=== PATIENT | female | born 1960 | race Two or more races ===

== ENCOUNTER 2017-06-03 22:02 | Inpatient (IN) | payer MEDICARE, OTHER ==
[~2017-06-03] VITALS: Ht 175.3 cm; Wt 72.6 kg
--- NOTE | 2017-06-03 22:09 | Emergency Room Report ---
History of Present Illness General Chief Complaint: Alcohol Intoxication Source: EMS Present Illness HPI Patient presents by paramedics for reports of alcohol abuse Patient herself is nonverbal this does limit the history of present illness paramedics reported the family states the patient sometimes becomes like this where she essentially refuses to respond to them after drinking Patient does drink on a daily basis No reports of vomiting or diarrhea No reports of any fall or trauma We are pending further discussion with family or other contact for further input Patient has been here several different occasions with some similar complaints Allergies: Coded Allergies: No Known Allergies (Unverified , 11/25/13) Patient History Limited by: medical condition Past Medical History: see triage record Pertinent Family History: unable to obtain Reviewed Nursing Documentation: PMH: Agreed, PSxH: Agreed Nursing Documentation-PMH Past Medical History: No History, Except For History Of Psychiatric Problem: Yes - ALCOHOL ABUSE Review of Systems All Other Systems: limited - Other than the ones mentioned in the history of present illness all others are reviewed however they do stay limited due to the patient's mental status Physical Exam Vital Signs Date Time Temp Pulse Resp B/P (MAP) Pulse Ox O2 Delivery O2 Flow Rate FiO2 06/03/17 21:58 62 20 114/47 100 Room Air Sp02 EP Interpretation: reviewed, normal General Appearance: no apparent distress Head: normocephalic, atraumatic Eyes: bilateral eye PERRL, bilateral eye EOMI ENT: hearing grossly normal, normal pharynx Neck: supple, thyroid normal Respiratory: chest non-tender, lungs clear Cardiovascular #1: normal peripheral pulses Gastrointestinal: non tender, soft Musculoskeletal: normal inspection - Patient does not follow all commands however no obvious focal deficit Neurologic: responsive - To verbal stimuli, however the patient is nonverbal at this time Psychiatric: other - Blunted affect Skin: no rash Medical Decision Making Diagnostic Impression: Primary Impression: Hyponatremia Additional Impressions: Hypokalemia Alcohol abuse ER Course Multiple differentials are considered Patient has broad-spectrum blood work initiated At this time patient shows abnormal findings including low sodium and potassium levels Patient is likely also dehydrated The son presented and was concern about the patient's behavior and alcohol intake Patient was given thiamine here as well with consideration of possible encephalopathy Patient admitted for further inpatient care Labs Test 06/03/17 22:20 White Blood Count 5.7 K/UL (4.8-10.8) Red Blood Count 4.02 M/UL (4.20-5.40) Hemoglobin 14.4 G/DL (12.0-16.0) Hematocrit 42.5 % (37.0-47.0) Mean Corpuscular Volume 106 FL (80-99) Mean Corpuscular Hemoglobin 35.8 PG (27.0-31.0) Mean Corpuscular Hemoglobin Concent 33.8 G/DL (32.0-36.0) Red Cell Distribution Width 12.4 % (11.6-14.8) Platelet Count 145 K/UL (150-450) Mean Platelet Volume 11.4 FL (6.5-10.1) Neutrophils (%) (Auto) 58.6 % (45.0-75.0) Lymphocytes (%) (Auto) 25.8 % (20.0-45.0) Monocytes (%) (Auto) 13.8 % (1.0-10.0) Eosinophils (%) (Auto) 0.4 % (0.0-3.0) Basophils (%) (Auto) 1.3 % (0.0-2.0) Sodium Level 131 mEQ/L (135-145) Potassium Level 2.8 mEQ/L (3.4-4.9) Chloride Level 90 mEQ/L (98-107) Carbon Dioxide Level 22 mEQ/L (20-30) Anion Gap 19 (5-15) Blood Urea Nitrogen 5 mg/dL (7-23) Creatinine 0.5 mg/dL (0.5-0.9) Estimat Glomerular Filtration Rate > 60 mL/min (>60) Glucose Level 103 mg/dL (74-106) Calcium Level 9.0 mg/dL (8.6-10.2) Total Bilirubin 0.7 mg/dL (0.0-1.2) Aspartate Amino Transf (AST/SGOT) 169 U/L (5-40) Alanine Aminotransferase (ALT/SGPT) 88 U/L (3-33) Alkaline Phosphatase 142 U/L (35-104) Total Protein 6.9 g/dL (6.6-8.7) Albumin 3.9 g/dL (3.5-5.2) Globulin 3.0 g/dL Albumin/Globulin Ratio 1.3 (1.0-2.7) Salicylates Level < 1 mg/dL (10-30) Acetaminophen Level < 10 ug/mL (10-30) Serum Alcohol 184 mg/dL Last Vital Signs Date Time Temp Pulse Resp B/P (MAP) Pulse Ox O2 Delivery O2 Flow Rate FiO2 06/03/17 21:58 62 20 114/47 100 Room Air Status: improved Disposition: ADMITTED INPATIENT Condition: Serious YIN PENNY D.O. Jun 03, 2017 22:09
[2017-06-03 22:10] VITALS: BP 110/73
[2017-06-03 22:38] LABS: BASOPHILS % (AUTO) 1.3 % (0.0-2.0); EOSINOPHILS % (AUTO) 0.4 % (0.0-3.0); LYMPHOCYTES % (AUTO) 25.8 % (20.0-45.0); MEAN CORPUSCULAR HEMOGLOBIN 35.8 PG (27.0-31.0); MEAN CORPUSCULAR HGB CONC 33.8 G/DL (32.0-36.0); MEAN CORPUSCULAR VOLUME 106 FL (80-99); MEAN PLATELET VOLUME 11.4 FL (6.5-10.1); MONOCYTES % (AUTO) 13.8 % (1.0-10.0); NEUTROPHILS % (AUTO) 58.6 % (45.0-75.0); PLATELET COUNT 145 K/UL (150-450); RED BLOOD COUNT 4.02 M/UL (4.20-5.40); RED CELL DISTRIBUTION WIDTH 12.4 % (11.6-14.8); WHITE BLOOD COUNT 5.7 K/UL (4.8-10.8)
[2017-06-03 23:04] LABS: ACETAMINOPHEN < 10 ug/mL (10-30); ALANINE AMINOTRANSFERASE 88 U/L (3-33); ALBUMIN/GLOBULIN RATIO 1.3 (1.0-2.7); ALCOHOL 184 mg/dL; ANION GAP 19 (5-15); ASPARTATE AMINO TRANSFERASE 169 U/L (5-40); CARBON DIOXIDE 22 mEQ/L (20-30); CHLORIDE 90 mEQ/L (98-107); CREATININE 0.5 mg/dL (0.5-0.9); GLOMERULAR FILTRATION RATE > 60 mL/min (>60); HEMOLYSIS 7; POTASSIUM 2.8 mEQ/L (3.4-4.9); SODIUM 131 mEQ/L (135-145); TOTAL PROTEIN 6.9 g/dL (6.6-8.7)
[2017-06-04 00:05] VITALS: BP 107/72
[2017-06-04] MEDS ORDERED: Thiamine 100mg tab ORAL ONE (02:00)
[2017-06-04 02:10] VITALS: BP 112/69
[2017-06-04] MEDS ORDERED: NKM (04:05)
[2017-06-04 04:30] VITALS: BP 105/68
[2017-06-04 08:28] VITALS: BP 98/62
[2017-06-04 08:37] LABS: BASOPHILS % (AUTO) 2.1 % (0.0-2.0); EOSINOPHILS % (AUTO) 1.7 % (0.0-3.0); LYMPHOCYTES % (AUTO) 29.6 % (20.0-45.0); MEAN CORPUSCULAR HEMOGLOBIN 34.5 PG (27.0-31.0); MEAN CORPUSCULAR HGB CONC 32.5 G/DL (32.0-36.0); MEAN CORPUSCULAR VOLUME 106 FL (80-99); MONOCYTES % (AUTO) 11.3 % (1.0-10.0); NEUTROPHILS % (AUTO) 55.3 % (45.0-75.0); PLATELET COUNT 161 K/UL (150-450); RED BLOOD COUNT 4.21 M/UL (4.20-5.40); RED CELL DISTRIBUTION WIDTH 12.6 % (11.6-14.8); WHITE BLOOD COUNT 5.8 K/UL (4.8-10.8)
[2017-06-04 08:48] LABS: ALANINE AMINOTRANSFERASE 99 U/L (3-33); ALBUMIN/GLOBULIN RATIO 1.2 (1.0-2.7); ANION GAP 13 (5-15); ASPARTATE AMINO TRANSFERASE 271 U/L (5-40); CARBON DIOXIDE 26 mEQ/L (20-30); CHLORIDE 97 mEQ/L (98-107); CREATININE 0.5 mg/dL (0.5-0.9); GLOMERULAR FILTRATION RATE > 60 mL/min (>60); HEMOLYSIS 4; POTASSIUM 3.5 mEQ/L (3.4-4.9); SODIUM 136 mEQ/L (135-145); TOTAL PROTEIN 6.4 g/dL (6.6-8.7)
[2017-06-04 09:39] LABS: BILIRUBIN,DIRECT 0.5 mg/dL (0.1-0.3)
--- NOTE | 2017-06-04 11:54 | Consultation ---
Consult Note Consult Note Chief Complaint: Alcohol Intoxication Patient presents by paramedics for reports of alcohol abuse Patient herself is nonverbal this does limit the history of present illness paramedics reported the family states the patient sometimes becomes like this where she essentially refuses to respond to them after drinking Patient does drink on a daily basis No reports of vomiting or diarrhea No reports of any fall or trauma We are pending further discussion with family or other contact for further input Patient has been here several different occasions with some similar complaints Past Medical History: No History, Except For History Of Psychiatric Problem: Yes - ALCOHOL ABUSE Assessment/Plan Primary Impression: Hyponatremia resolved- Additional Impressions: Hypokalemia resolved Alcohol abuse Plan: Hydrate- Supplements- Per orders SUSHIL BRAUN Jun 04, 2017 11:54
[2017-06-04] MEDS: Thiamine 100mg tab ORAL SCH (13:17)
[2017-06-04 14:40] LABS: APPEARANCE,URINE CLEAR; KETONES,URINE NEGATIVE (NEGATIVE); LEUKOCYTE ESTERASE ,URINE NEGATIVE (NEGATIVE); NITRITE,URINE NEGATIVE (NEGATIVE); PH,URINE 7 (4.5-8.0); PROTEIN,URINE NEGATIVE (NEGATIVE); UROBILINOGEN,URINE 1 MG/DL (0.0-1.0)
[2017-06-04 15:09] LABS: AMMONIA 43 umol/L (11-51)
[2017-06-04 15:21] LABS: BACTERIA,URINE OCCASIONAL /HPF; RBC,URINE 0-2 /HPF (0 - 2); SQUAMOUS EPITHELIAL CELL,UR OCCASIONAL /LPF (NONE/OCC); WBC,URINE 0-2 /HPF (0 - 2)
--- NOTE | 2017-06-04 15:22 | Diagnostic Imaging Report ---
Indications: Altered mental status Technique: Spiral acquisitions obtained through the brain. Angled axial and coronal 5 x 5 mm slices were reconstructed. Total dose length product 1319 mGycm. CTDI vol(s) 70 mGy. Dose reduction achieved using automated exposure control Comparison: None Findings: No acute hemorrhage or edema. No mass effect or midline shift. Normal uriostegui-white differentiation. Intact calvarium. Visualized orbits and sinuses are unremarkable. Impression: Negative The CT scanner at [facility] is accredited by the [employer] and the scans are performed using protocols designed to limit radiation exposure to as low as reasonably achievable to attain images of sufficient resolution adequate for diagnostic evaluation.
[2017-06-04 16:00] VITALS: BP 118/71
--- NOTE | 2017-06-04 17:16 | Consultation ---
History of Present Illness General Chief Complaint: Alcohol Intoxication Present Illness HPI 57 yo female with hx of anxiety and depression and alcohol dependence who presented with anxiety. the pt was min verbal, she stated that she has had 4-5 shots of vodka for many years. her last drink was the day before admit 6pm. the pt was calm no withdrawal sxs. slept last night. appetite is well. Allergies: Coded Allergies: No Known Allergies (Unverified , 11/25/13) Medication History Scheduled No Known Medications* (NKM - No Known Medications*), 0 ., (Reported) Patient History History Provided By: Patient, Medical Record, PMD Healthcare decision maker Earl Calabrese Resuscitation status Full Code Advanced Directive on File Past Medical/Surgical History Past Medical/Surgical History: (1) Alcohol abuse (2) head injury (3) Injury of head (4) head injury (5) Hypokalemia (6) Alcohol abuse (7) Hyponatremia Review of Systems Psychiatric: Reports: prior hx, anxiety, depressed feelings, emotional problems Physical Exam General Appearance: no apparent distress, alert, thin Neurologic: alert, oriented x 3, responsive, depressed affect Last 24 Hour Vital Signs Date Time Temp Pulse Resp B/P (MAP) Pulse Ox O2 Delivery O2 Flow Rate FiO2 06/04/17 08:28 99.5 78 21 98/62 91 Room Air 06/04/17 05:13 98.2 71 14 105/68 99 Room Air 06/04/17 04:30 98.2 71 14 105/68 99 Room Air 06/04/17 02:10 98.0 68 15 112/69 96 Room Air 06/04/17 00:05 70 16 107/72 98 Room Air 06/03/17 22:10 97.7 67 17 110/73 94 Room Air 06/03/17 21:58 62 20 114/47 100 Room Air Laboratory Tests Test 06/03/17 22:20 06/04/17 06:50 06/04/17 08:15 06/04/17 13:19 White Blood Count 5.7 K/UL (4.8-10.8) 5.8 K/UL (4.8-10.8) Red Blood Count 4.02 M/UL (4.20-5.40) L 4.21 M/UL (4.20-5.40) Hemoglobin 14.4 G/DL (12.0-16.0) 14.5 G/DL (12.0-16.0) Hematocrit 42.5 % (37.0-47.0) 44.7 % (37.0-47.0) Mean Corpuscular Volume 106 FL (80-99) H 106 FL (80-99) H Mean Corpuscular Hemoglobin 35.8 PG (27.0-31.0) H 34.5 PG (27.0-31.0) H Mean Corpuscular Hemoglobin Concent 33.8 G/DL (32.0-36.0) 32.5 G/DL (32.0-36.0) Red Cell Distribution Width 12.4 % (11.6-14.8) 12.6 % (11.6-14.8) Platelet Count 145 K/UL (150-450) L 161 K/UL (150-450) Mean Platelet Volume 11.4 FL (6.5-10.1) H 10.0 FL (6.5-10.1) Neutrophils (%) (Auto) 58.6 % (45.0-75.0) 55.3 % (45.0-75.0) Lymphocytes (%) (Auto) 25.8 % (20.0-45.0) 29.6 % (20.0-45.0) Monocytes (%) (Auto) 13.8 % (1.0-10.0) H 11.3 % (1.0-10.0) H Eosinophils (%) (Auto) 0.4 % (0.0-3.0) 1.7 % (0.0-3.0) Basophils (%) (Auto) 1.3 % (0.0-2.0) 2.1 % (0.0-2.0) H Sodium Level 131 mEQ/L (135-145) L 136 mEQ/L (135-145) Potassium Level 2.8 mEQ/L (3.4-4.9) L 3.5 mEQ/L (3.4-4.9) Chloride Level 90 mEQ/L (98-107) L 97 mEQ/L (98-107) L Carbon Dioxide Level 22 mEQ/L (20-30) 26 mEQ/L (20-30) Anion Gap 19 (5-15) H 13 (5-15) Blood Urea Nitrogen 5 mg/dL (7-23) L 5 mg/dL (7-23) L Creatinine 0.5 mg/dL (0.5-0.9) 0.5 mg/dL (0.5-0.9) Estimat Glomerular Filtration Rate > 60 mL/min (>60) > 60 mL/min (>60) Glucose Level 103 mg/dL (74-106) 119 mg/dL (74-106) H Calcium Level 9.0 mg/dL (8.6-10.2) 9.0 mg/dL (8.6-10.2) Total Bilirubin 0.7 mg/dL (0.0-1.2) 1.2 mg/dL (0.0-1.2) Aspartate Amino Transf (AST/SGOT) 169 U/L (5-40) H 271 U/L (5-40) H Alanine Aminotransferase (ALT/SGPT) 88 U/L (3-33) H 99 U/L (3-33) H Alkaline Phosphatase 142 U/L (35-104) H 143 U/L (35-104) H Total Protein 6.9 g/dL (6.6-8.7) 6.4 g/dL (6.6-8.7) L Albumin 3.9 g/dL (3.5-5.2) 3.6 g/dL (3.5-5.2) Globulin 3.0 g/dL 2.8 g/dL Albumin/Globulin Ratio 1.3 (1.0-2.7) 1.2 (1.0-2.7) Salicylates Level < 1 mg/dL (10-30) L Acetaminophen Level < 10 ug/mL (10-30) L Serum Alcohol 184 mg/dL Urine Opiates Screen Negative (NEGATIVE) Urine Barbiturates Screen Negative (NEGATIVE) Phencyclidine (PCP) Screen Negative (NEGATIVE) Urine Amphetamines Screen Negative (NEGATIVE) Urine Benzodiazepines Screen Negative (NEGATIVE) Urine Cocaine Screen Negative (NEGATIVE) Urine Marijuana (THC) Screen Negative (NEGATIVE) Direct Bilirubin 0.5 mg/dL (0.1-0.3) H Urine Color Yellow Urine Appearance Clear Urine pH 7 (4.5-8.0) Urine Specific [place] 1.015 (1.005-1.035) Urine Protein Negative (NEGATIVE) Urine Glucose (UA) Negative (NEGATIVE) Urine Ketones Negative (NEGATIVE) Urine Occult Blood Negative (NEGATIVE) Urine Nitrite Negative (NEGATIVE) Urine Bilirubin Negative (NEGATIVE) Urine Urobilinogen 1 MG/DL (0.0-1.0) H Urine Leukocyte Esterase Negative (NEGATIVE) Urine RBC 0-2 /HPF (0 - 2) Urine WBC 0-2 /HPF (0 - 2) Urine Squamous Epithelial Cells Occasional /LPF Urine Bacteria Occasional /HPF (NONE) Test 06/04/17 14:45 Ammonia 43 umol/L (11-51) Vitamin B12 Level 1059 pg/mL (211-946) H Height (Feet): 5 Height (Inches): 9.00 Weight (Pounds): 160 Medications Current Medications Medications (Trade) Dose Ordered Sig/Neeraj Route PRN Reason Start Time Stop Time Status Last Admin Dose Admin Diazepam (Valium) 10 mg EVERY 4 HOURS PRN ORAL agitaiton 06/04/17 12:30 06/11/17 12:29 Fluoxetine HCl (PROzac) 20 mg DAILY ORAL 06/05/17 09:00 07/05/17 08:59 Pantoprazole (Protonix) 40 mg EVERY 12 HOURS ORAL 06/04/17 21:00 07/04/17 20:59 Thiamine HCl (Vitamin B1) 100 mg DAILY ORAL 06/04/17 13:00 07/04/17 12:59 06/04/17 13:17 Assessment/Plan Status: stable, progressing Assessment/Plan Alcohol dependence anxiety d/o -Valium 10mg q4hr prn -pozac 20mg Donald Modi M.D. Jun 04, 2017 17:16
[2017-06-04 20:00] VITALS: BP 101/65
--- NOTE | 2017-06-04 23:30 | Consultation ---
DATE OF CONSULTATION: 06/04/2017 NEUROLOGICAL CONSULTATION CONSULTING PHYSICIAN: Markel Stovall M.D. REQUESTING PHYSICIAN: Jules Guardado M.D. HISTORY OF PRESENT ILLNESS: The patient is a 57-year-old female, seen in neurological consultation to evaluate new changes in behavioral abnormalities. Subsequently, the patient was able to provide with information stating that she is suffering from intermittent dizzy spells and severe headaches for at least the last year. This coincides with the severe stress that she developed a year ago after the of her partner, she began to have severe depression. Paramedics were called to the scene to address the issue of her depression, being nonverbal. They described her being unkempt and disheveled. Her vital signs were stable and she was afebrile. She was brought to emergency room, described as being nonverbal. Family contributed stating that the patient has episodes when she would refusing to respond to them. The patient suffers from alcohol abuse for at least 10 years, drinking on a daily basis. She is a smoker. Previous CT of the brain obtained in 2012 described right posterior parietal scalp hematoma, nasal bone fracture, and chronic and paranasal sinusitis. She was seen for falling and head injuries. In the year 1999, the patient presented with the alcohol abuse, head trauma, being treated with Prozac, Protonix, thiamine, as well as given Valium. PAST MEDICAL HISTORY: The patient states that she has episodes of intermittent vertigo, hypertension, unsteady gait, chronic headaches, and severe depression. MEDICATIONS: Her treatment prior to admission, not identifiable. The patient was unable to recall, but presumed she is on Prozac, Protonix, thiamine, and Valium. ALLERGIES: None reported. SOCIAL HISTORY: She lives at home. She admitted to alcohol abuse. No illicit drug abuse. REVIEW OF SYSTEMS: Headache, dizziness, and depression. Denies chest pain or palpitations. Denies respiratory problems. Denies abdominal pain or discomfort. She states that she has somewhat unsteady gait. PHYSICAL EXAMINATION: GENERAL: A well-developed and well-nourished female, sitting in the bed while having her lunch. VITAL SIGNS: Now stable. Temperature 99.5 degrees and blood pressure 98/62. HEENT: Head normocephalic. No evidence of injuries. Eyes, ears, and throat are clear. NECK: Supple. No meningeal signs. MUSCULOSKELETAL EXAMINATION: Unremarkable. There is no deformities. Peripheral pulses 1+ and symmetric. MENTAL STATUS: The patient is alert and oriented x3. No evidence of aphasia or apraxia. Mood depressed. CRANIAL NERVE II: Pupils both responding to light and accommodation. Extraocular movement intact. No nystagmus. CRANIAL NERVE V: Normal corneal responses. CRANIAL NERVE VII: No facial asymmetry. CRANIAL NERVE VIII: Normal hearing. No positional nystagmus. CRANIAL NERVES IX THROUGH XII: Within normal limits. MOTOR EXAMINATION: Normal muscle tone. Strength 5/5 in all extremities. No involuntary movement. Deep tendon reflexes 1+ and symmetric with downgoing toes on both sides. SENSORY EXAM: Normal to pinprick and light touch. GAIT: Slightly wobbly. LABORATORY DATA: On admission, CBC study included elevated MCV and MCH and platelet count 145,000. Toxicology panel, alcohol level 184. Chemistry panel with elevated AST 169 and ALT 88. Sodium 131 and potassium 2.8. Alkaline phosphatase 142. IMPRESSION: 1. A 57-year-old female with alcohol abuse and major depression. 2. History of intermittent benign positional vertigo. 3. Cephalgia, muscle contraction type. 4. Rule out alcohol liver disease. RECOMMENDATIONS: 1. Abdominal ultrasound. 2. CT of the brain. 3. Thiamine 100 mg daily. 4. Ammonia level. 5. Psychiatry assessment to address underlying depression. 6. P.r.n. Valium 5 mg q.i.d. for any signs of delirium. Thank you for allowing me to see this interesting patient in neurological consultation. Markel Stovall M.D. DR: PRAVEEN JOB#: [id number] CC:
[2017-06-05] VITALS (7 sets, daily range): BP systolic 96–123; BP diastolic 50–81
--- NOTE | 2017-06-05 | History and Physical Report ---
DATE OF ADMISSION: 06/04/2017 HISTORY OF PRESENT ILLNESS: The patient comes in. She has alcohol abuse. She is here for severe hypokalemia, elevated LFTs, and some depression. The patient also complains of vomiting and abdominal pain. Denies rectal bleeding. Denies constipation. Denies fever or chills. Denies cough. Denies tremors. Denies hallucinations. PAST MEDICAL HISTORY: Significant for alcohol abuse, history of depression, GERD, and hernia. PAST SURGICAL HISTORY: Hernia repair. MEDICATIONS: Diazepam, Prozac, Protonix, and thiamine. SOCIAL HISTORY: The patient smokes. She has a history of alcohol abuse. Denies history of drug abuse. FAMILY HISTORY: Noncontributory. REVIEW OF SYSTEMS: HEENT: Denies headaches. Respiratory: Denies shortness of breath. Denies cough. Cardiovascular: Denies chest pain. Gastrointestinal: Does have vomiting, nausea, and abdominal pain for couple of days. Denies rectal bleeding. Denies constipation. Extremities: Denies pain in the lower extremities. Central Nervous System: No change in vision or speech pattern. PHYSICAL EXAMINATION: VITAL SIGNS: Temperature is 97.7 degrees, pulse is 67, and blood pressure is 110/73. HEENT: PERRLA. NECK: Supple. No lymphadenopathy. CHEST: Clear to auscultation. GASTROINTESTINAL: Soft, distended. The patient does have hernia. Abdomen is soft. No organomegaly. Positive bowel sounds. EXTREMITIES: No edema. Reflexes are equal on both sides. Able to move all four extremities. NEUROLOGIC: Oriented x2. LABORATORY DATA: WBC of 5.7, hemoglobin 14.4, and platelets 145,000. Sodium 131, potassium 2.8, BUN of 5, and creatinine of 0.5. AST of 169 and ALT of 88. ASSESSMENT AND PLAN: 1. Severe hypokalemia. 2. Elevated liver function tests. 3. Alcohol abuse. 4. Abdominal pain and vomiting. 5. Electrolyte imbalance. 6. I have asked Dr. Stovall, Dr. Gil, Dr. Davila, and Dr. Ren to see the patient for the depression and the above-mentioned diagnoses and treatment. Jules Guardado M.D. DR: Shawn JOB#: [id number] CC:
[2017-06-05 07:35] LABS: MEAN CORPUSCULAR HEMOGLOBIN 37.4 PG (27.0-31.0); MEAN CORPUSCULAR HGB CONC 33.6 G/DL (32.0-36.0); MEAN CORPUSCULAR VOLUME 111 FL (80-99); MEAN PLATELET VOLUME 10.9 FL (6.5-10.1); PLATELET COUNT 135 K/UL (150-450); RED BLOOD COUNT 3.62 M/UL (4.20-5.40); RED CELL DISTRIBUTION WIDTH 12.6 % (11.6-14.8); WHITE BLOOD COUNT 5.5 K/UL (4.8-10.8)
[2017-06-05 07:53] LABS: ALANINE AMINOTRANSFERASE 76 U/L (3-33); ALBUMIN/GLOBULIN RATIO 1.3 (1.0-2.7); ANION GAP 8 (5-15); ASPARTATE AMINO TRANSFERASE 121 U/L (5-40); CALCIUM 8.9 mg/dL (8.6-10.2); CARBON DIOXIDE 31 mEQ/L (20-30); CHLORIDE 100 mEQ/L (98-107); CHOLESTEROL 160 mg/dL (< 200); CHOLESTEROL/HDL RATIO 2.9 (3.3-4.4); CREATININE 0.5 mg/dL (0.5-0.9); CRP QUANT < 0.3 mg/dL (< 0.5); GLOMERULAR FILTRATION RATE > 60 mL/min (>60); HEMOLYSIS 8; LDL CHOLESTEROL (CALC.) 88 mg/dL (60-99); MAGNESIUM 1.8 mg/dL (1.7-2.5); PHOSPHORUS 3.3 mg/dL (2.5-4.8); POTASSIUM 3.6 mEQ/L (3.4-4.9); SODIUM 139 mEQ/L (135-145); TOTAL PROTEIN 5.7 g/dL (6.6-8.7); URIC ACID 6.3 mg/dL (3.0-7.5)
[2017-06-05 07:55] LABS: PROTHROMBIN TIME 10.6 SEC (9.30-11.50)
[2017-06-05] MEDS: Thiamine 100mg tab ORAL SCH (08:03)
--- NOTE | 2017-06-05 08:30 | Consultation ---
DATE OF CONSULTATION: 06/04/2017 GASTROLOGY CONSULTATION CHIEF COMPLAINT: I was asked to see this patient for evaluation of abdominal issues. HISTORY OF PRESENT ILLNESS: The patient is a 57-year-old woman, who is a poor historian and was brought into the hospital due to nausea and vomiting. The patient herself does not provide much information. She states she has had multiple abdominal hernia surgeries and she does have a hernia when she strained in the anterior abdominal wall. She also drinks on a daily basis and apparently has a little bit of a history of alcohol abuse. She states she has never had an endoscopy or colonoscopy to her knowledge. Other information is only available from the chart. PAST MEDICAL HISTORY: History of alcohol abuse, history of head injury, and history of multiple abdominal wall hernia surgeries. MEDICATIONS: See chart list for details. ALLERGIES: None noted. FAMILY HISTORY: Noncontributory. SOCIAL HISTORY: The patient lives in [facility]. REVIEW OF SYSTEMS: Otherwise negative. PHYSICAL EXAMINATION: GENERAL: The patient is a pleasant woman, seen in her room. HEENT: Normocephalic and atraumatic. Sclerae anicteric. Oropharynx clear. NECK: Supple. CHEST: Clear to auscultation. CARDIOVASCULAR: Revealed a regular rate. ABDOMEN: Soft with a midline scar with hernia in the midline scar which is easily self-reducible. EXTREMITIES: Revealed no edema. LABORATORY DATA: Noted. ASSESSMENT: This patient presents with nausea and vomiting, which appears to have subsided. That may have been due to her alcoholism. Alternatively, the hernia will be playing a role. I will order a CT scan of the abdomen and pelvis with oral contrast to evaluate the hernia. The patient should refrain from alcohol consumption. RECOMMENDATIONS: Per above discussion and per orders written in the chart. Thank you for asking me to participate in the care of this patient. Graham Ren M.D. DR: CHET JOB#: [id number] CC:
[2017-06-05 08:38] LABS: HEMOGLOBIN A1C 4.7 % (< 6.0)
[2017-06-05 09:42] LABS: BAND NEUTROPHILS % (MANUAL) 0 % (0-8); BASOPHILS % (MANUAL) 1 % (0-2); EOSINOPHILS % (MANUAL) 5 % (0-3); LYMPHOCYTES % (MANUAL) 34 % (20-45); NEUTROPHILS % (MANUAL) 46 % (45-75); PLATELET ESTIMATE DECREASED; PLATELET MORPHOLOGY NORMAL; TOTAL CELLS COUNTED 100
[2017-06-05 09:43] LABS: MACROCYTES 1+
[2017-06-05 09:44] LABS: STOMATOCYTES OCCASIONAL
--- NOTE | 2017-06-05 10:39 | General Progress Note ---
Assessment/Plan Assessment/Plan Assessment - anterior abd wall hernia - N/V - resolved - abnormal LFT Recommendations - po diet as tolerated - check hepatitis serologies - check CT scan of abd and pelvis - check stool OB Subjective Allergies: Coded Allergies: No Known Allergies (Unverified , 11/25/13) Subjective uneventful night no vomiting no pain no complaints Objective Last 24 Hour Vital Signs Date Time Temp Pulse Resp B/P (MAP) Pulse Ox O2 Delivery O2 Flow Rate FiO2 06/05/17 07:50 97.3 65 15 96/62 Room Air 06/05/17 04:00 97.9 67 18 104/60 99 Room Air 06/05/17 00:00 98.4 77 18 98/62 98 Room Air 06/04/17 20:00 99.3 63 18 101/65 99 Room Air 06/04/17 16:00 98.0 65 19 118/71 95 Room Air Laboratory Tests 06/04/17 13:19: Urine Color Yellow, Urine Appearance Clear, Urine pH 7, Urine Specific [place] 1.015, Urine Protein Negative, Urine Glucose (UA) Negative, Urine Ketones Negative, Urine Occult Blood Negative, Urine Nitrite Negative, Urine Bilirubin Negative, Urine Urobilinogen 1H, Urine Leukocyte Esterase Negative, Urine RBC 0- 2, Urine WBC 0-2, Urine Squamous Epithelial Cells Occasional, Urine Bacteria Occasional 06/04/17 14:45: Ammonia 43, Vitamin B12 Level 1059H 06/05/17 06:40: White Blood Count 5.5, Red Blood Count 3.62L, Hemoglobin 13.5, Hematocrit 40.3, Mean Corpuscular Volume 111H, Mean Corpuscular Hemoglobin 37.4H, Mean Corpuscular Hemoglobin Concent 33.6, Red Cell Distribution Width 12.6, Platelet Count 135L, Mean Platelet Volume 10.9H, Neutrophils (%) (Auto) , Lymphocytes (% ) (Auto) , Monocytes (%) (Auto) , Eosinophils (%) (Auto) , Basophils (%) (Auto) , Differential Total Cells Counted 100, Neutrophils % (Manual) 46, Lymphocytes % (Manual) 34, Monocytes % (Manual) 14H, Eosinophils % (Manual) 5H, Basophils % (Manual) 1, Band Neutrophils 0, Platelet Estimate DecreasedL, Platelet Morphology Normal, Macrocytosis 1+, Stomatocytes Occasional, Reticulocyte Count 1.3, Prothrombin Time 10.6, Prothromb Time International Ratio 1.0, Sodium Level 139, Potassium Level 3.6, Chloride Level 100, Carbon Dioxide Level 31H, Anion Gap 8, Blood Urea Nitrogen 5L, Creatinine 0.5, Estimat Glomerular Filtration Rate > 60, Glucose Level 88, Hemoglobin A1c 4.7, Uric Acid 6.3, Calcium Level 8.9, Phosphorus Level 3.3, Magnesium Level 1.8, Total Bilirubin 0.7, Gamma Glutamyl Transpeptidase 728H, Aspartate Amino Transf (AST/SGOT) 121H , Alanine Aminotransferase (ALT/SGPT) 76H, Alkaline Phosphatase 144H, Total Creatine Kinase 45, C-Reactive Protein, Quantitative < 0.3, Pro-B-Type Natriuretic Peptide 109, Total Protein 5.7L, Albumin 3.3L, Globulin 2.4, Albumin /Globulin Ratio 1.3, Triglycerides Level 85, Cholesterol Level 160, LDL Cholesterol 88, HDL Cholesterol 55, Cholesterol/HDL Ratio 2.9L, Thyroid Stimulating Hormone (TSH) 2.910 Height (Feet): 5 Height (Inches): 9.00 Weight (Pounds): 160 Objective WDWN L woman NCAT supple CTA RRR Soft ND NT, (+) wound hernia w/o change no edema non focal DAVE AVILA Jun 05, 2017 10:39
--- NOTE | 2017-06-05 14:42 | Diagnostic Imaging Report ---
APPROVED REPORT CPT Code: 52450 Present Symptoms Lower Extremity Pain: Comments: Hx HTN. BILATERAL: Imaging reveals a patent deep venous system bilaterally. There is no evidence of thrombus within the femoral, popliteal or tibial segments. The greater saphenous veins are also within normal limits. Doppler indicates normal spontaneous flow within these segments.
--- NOTE | 2017-06-05 15:31 | Consultation ---
DATE OF CONSULTATION: 06/04/2017 HEMATOLOGY/ONCOLOGY CONSULTATION REQUESTING PHYSICIAN: Jules Guardado M.D. REASON FOR CONSULTATION: Evaluation of macrocytosis. IDENTIFICATION DATA: Dear Dr. Jules Guardado, The patient is a pleasant 57-year-old female with past medical history significant for alcohol abuse, brought in by paramedics, nonverbal, limited history, difficult to obtain. The patient initially refused evaluation after drinking. The patient does drink on a daily basis, otherwise no reports of vomiting or diarrhea. No reports of any fall or trauma. Pending discussion with family. The patient has had similar episodes in the past. PAST MEDICAL HISTORY: Has been reviewed, none noted except for alcohol abuse. MEDICATIONS: Reviewed. ALLERGIES: No known drug allergies. REVIEW OF SYSTEMS: Constitution: The patient is depressed and anxious. HEENT: No headache, hearing or vision changes. Breasts: No lumps, pain, or discharge. Pulmonary: No cough, sputum, or shortness of breath. Gastrointestinal: No nausea, vomiting, or diarrhea. Genitourinary: No dysuria, frequency, or urgency. Musculoskeletal: No joint swelling, muscle pain, or trauma. PHYSICAL EXAMINATION: VITAL SIGNS: Temperature 98 degrees Fahrenheit, pulse of 82, respiratory rate 12, blood pressure 98/62, and pulse oximetry 99% on room air. GENERAL: The patient is in no acute distress. LUNGS: . CARDIOVASCULAR: Regular rate. No S3 or S4. ABDOMEN: Soft, nontender, and nondistended. EXTREMITIES: A 1+ edema. LABORATORY DATA: WBC 4.7, hemoglobin 14.4, hematocrit 43, and platelet count of 145,000. ASSESSMENT AND PLAN: 1. Macrocytosis, I would say is directly related to the patient's history of alcohol abuse. The patient noted to be with transaminitis with a 2:1 ratio of AST and ALT, which is positive for alcohol abuse. Macrocytosis should improve after alcohol is decreased in the patient's diet. 2. Pancytopenia, likely secondary to underlying alcohol abuse, which should improve as well. 3. Coagulopathy with an INR, which has been ordered. 4. Hyponatremia, IV fluids as needed. Give the patient fluids. 5. Transaminitis. 6. elevated ____ vitamin B12 deficiency. I appreciate the consultation. Lauri Cancino M.D. DR: CELESTE JOB#: [id number] CC:
--- NOTE | 2017-06-05 15:39 | Infectious Diseases Prog Note ---
Assessment/Plan Problems: (1) Hepatitis, acute Assessment & Plan: will send hepatitis panel for screening, most likely due to alcohol abuse, avoid hepatotoxic meds , GI is following, rule out autoimmune etiology too (2) Abdominal wall hernia Assessment & Plan: await CT of the abdomen for further evaluation and management . consult general surgery (3) Alcohol abuse Assessment & Plan: recommend counseling and rehabilitations. watch for DT Subjective Allergies: Coded Allergies: No Known Allergies (Unverified , 11/25/13) Objective Vital Signs Last 24 Hour Vital Signs Date Time Temp Pulse Resp B/P (MAP) Pulse Ox O2 Delivery O2 Flow Rate FiO2 06/05/17 11:54 97.9 62 18 123/81 99 Room Air 06/05/17 07:50 97.3 65 15 96/62 Room Air 06/05/17 04:00 97.9 67 18 104/60 99 Room Air 06/05/17 00:00 98.4 77 18 98/62 98 Room Air 06/04/17 20:00 99.3 63 18 101/65 99 Room Air 06/04/17 16:00 98.0 65 19 118/71 95 Room Air Height (Feet): 5 Height (Inches): 9.00 Weight (Pounds): 160 Laboratory Tests Test 06/05/17 06:40 06/05/17 14:30 White Blood Count 5.5 K/UL (4.8-10.8) Red Blood Count 3.62 M/UL (4.20-5.40) L Hemoglobin 13.5 G/DL (12.0-16.0) Hematocrit 40.3 % (37.0-47.0) Mean Corpuscular Volume 111 FL (80-99) H Mean Corpuscular Hemoglobin 37.4 PG (27.0-31.0) H Mean Corpuscular Hemoglobin Concent 33.6 G/DL (32.0-36.0) Red Cell Distribution Width 12.6 % (11.6-14.8) Platelet Count 135 K/UL (150-450) L Mean Platelet Volume 10.9 FL (6.5-10.1) H Neutrophils (%) (Auto) % (45.0-75.0) Lymphocytes (%) (Auto) % (20.0-45.0) Monocytes (%) (Auto) % (1.0-10.0) Eosinophils (%) (Auto) % (0.0-3.0) Basophils (%) (Auto) % (0.0-2.0) Differential Total Cells Counted 100 Neutrophils % (Manual) 46 % (45-75) Lymphocytes % (Manual) 34 % (20-45) Monocytes % (Manual) 14 % (1-10) H Eosinophils % (Manual) 5 % (0-3) H Basophils % (Manual) 1 % (0-2) Band Neutrophils 0 % (0-8) Platelet Estimate Decreased L Platelet Morphology Normal Macrocytosis 1+ Stomatocytes Occasional Reticulocyte Count 1.3 % (0.0-2.0) Prothrombin Time 10.6 SEC (9.30-11.50) Prothromb Time International Ratio 1.0 (0.9-1.1) Sodium Level 139 mEQ/L (135-145) Potassium Level 3.6 mEQ/L (3.4-4.9) Chloride Level 100 mEQ/L (98-107) Carbon Dioxide Level 31 mEQ/L (20-30) H Anion Gap 8 (5-15) Blood Urea Nitrogen 5 mg/dL (7-23) L Creatinine 0.5 mg/dL (0.5-0.9) Estimat Glomerular Filtration Rate > 60 mL/min (>60) Glucose Level 88 mg/dL (74-106) Hemoglobin A1c 4.7 % (< 6.0) Uric Acid 6.3 mg/dL (3.0-7.5) Calcium Level 8.9 mg/dL (8.6-10.2) Phosphorus Level 3.3 mg/dL (2.5-4.8) Magnesium Level 1.8 mg/dL (1.7-2.5) Total Bilirubin 0.7 mg/dL (0.0-1.2) Gamma Glutamyl Transpeptidase 728 U/L (5-36) H Aspartate Amino Transf (AST/SGOT) 121 U/L (5-40) H Alanine Aminotransferase (ALT/SGPT) 76 U/L (3-33) H Alkaline Phosphatase 144 U/L (35-104) H Total Creatine Kinase 45 U/L (26-140) C-Reactive Protein, Quantitative < 0.3 mg/dL (< 0.5) Pro-B-Type Natriuretic Peptide 109 pg/mL (0-125) Total Protein 5.7 g/dL (6.6-8.7) L Albumin 3.3 g/dL (3.5-5.2) L Globulin 2.4 g/dL Albumin/Globulin Ratio 1.3 (1.0-2.7) Triglycerides Level 85 mg/dL (< 150) Cholesterol Level 160 mg/dL (< 200) LDL Cholesterol 88 mg/dL (60-99) HDL Cholesterol 55 mg/dL (> 60) Cholesterol/HDL Ratio 2.9 (3.3-4.4) L Thyroid Stimulating Hormone (TSH) 2.910 uIU/mL (0.300-4.500) Hepatitis A IgM Antibody Pending Hepatitis B Surface Antigen Pending Hepatitis B Core IgM Antibody Pending Hepatitis C Antibody Pending Stool Occult Blood Negative (NEGATIVE) Current Medications Medications (Trade) Dose Ordered Sig/Neeraj Route PRN Reason Start Time Stop Time Status Last Admin Dose Admin Diazepam (Valium) 10 mg EVERY 4 HOURS PRN ORAL agitaiton 06/04/17 12:30 06/11/17 12:29 06/05/17 11:11 Fluoxetine HCl (PROzac) 20 mg DAILY ORAL 06/05/17 09:00 07/05/17 08:59 06/05/17 08:03 Pantoprazole (Protonix) 40 mg EVERY 12 HOURS ORAL 06/04/17 21:00 07/04/17 20:59 06/05/17 08:02 Thiamine HCl (Vitamin B1) 100 mg DAILY ORAL 06/04/17 13:00 07/04/17 12:59 06/05/17 08:03 Layne Yang M.D. Jun 05, 2017 15:39
--- NOTE | 2017-06-05 15:58 | General Progress Note ---
Assessment/Plan Status: unchanged Assessment/Plan Primary Impression: Hyponatremia resolved- Hypokalemia resolved Alcohol abuse high LFTs Plan: Hydrate po Supplements- Per orders Subjective ROS Limited/Unobtainable: No Constitutional: Reports: malaise Allergies: Coded Allergies: No Known Allergies (Unverified , 11/25/13) Objective Last 24 Hour Vital Signs Date Time Temp Pulse Resp B/P (MAP) Pulse Ox O2 Delivery O2 Flow Rate FiO2 06/05/17 11:54 97.9 62 18 123/81 99 Room Air 06/05/17 07:50 97.3 65 15 96/62 Room Air 06/05/17 04:00 97.9 67 18 104/60 99 Room Air 06/05/17 00:00 98.4 77 18 98/62 98 Room Air 06/04/17 20:00 99.3 63 18 101/65 99 Room Air 06/04/17 16:00 98.0 65 19 118/71 95 Room Air Intake and Output 06/05/17 06/06/17 19:00 07:00 Intake Total 240 ml Balance 240 ml Intake Oral 240 ml Laboratory Tests 06/05/17 06:40: White Blood Count 5.5, Red Blood Count 3.62L, Hemoglobin 13.5, Hematocrit 40.3, Mean Corpuscular Volume 111H, Mean Corpuscular Hemoglobin 37.4H, Mean Corpuscular Hemoglobin Concent 33.6, Red Cell Distribution Width 12.6, Platelet Count 135L, Mean Platelet Volume 10.9H, Neutrophils (%) (Auto) , Lymphocytes (% ) (Auto) , Monocytes (%) (Auto) , Eosinophils (%) (Auto) , Basophils (%) (Auto) , Differential Total Cells Counted 100, Neutrophils % (Manual) 46, Lymphocytes % (Manual) 34, Monocytes % (Manual) 14H, Eosinophils % (Manual) 5H, Basophils % (Manual) 1, Band Neutrophils 0, Platelet Estimate DecreasedL, Platelet Morphology Normal, Macrocytosis 1+, Stomatocytes Occasional, Reticulocyte Count 1.3, Prothrombin Time 10.6, Prothromb Time International Ratio 1.0, Sodium Level 139, Potassium Level 3.6, Chloride Level 100, Carbon Dioxide Level 31H, Anion Gap 8, Blood Urea Nitrogen 5L, Creatinine 0.5, Estimat Glomerular Filtration Rate > 60, Glucose Level 88, Hemoglobin A1c 4.7, Uric Acid 6.3, Calcium Level 8.9, Phosphorus Level 3.3, Magnesium Level 1.8, Total Bilirubin 0.7, Gamma Glutamyl Transpeptidase 728H, Aspartate Amino Transf (AST/SGOT) 121H , Alanine Aminotransferase (ALT/SGPT) 76H, Alkaline Phosphatase 144H, Total Creatine Kinase 45, C-Reactive Protein, Quantitative < 0.3, Pro-B-Type Natriuretic Peptide 109, Total Protein 5.7L, Albumin 3.3L, Globulin 2.4, Albumin /Globulin Ratio 1.3, Triglycerides Level 85, Cholesterol Level 160, LDL Cholesterol 88, HDL Cholesterol 55, Cholesterol/HDL Ratio 2.9L, Thyroid Stimulating Hormone (TSH) 2.910, Hepatitis A IgM Antibody [Pending], Hepatitis B Surface Antigen [Pending], Hepatitis B Core IgM Antibody [Pending], Hepatitis C Antibody [Pending] 06/05/17 14:30: Stool Occult Blood Negative Height (Feet): 5 Height (Inches): 9.00 Weight (Pounds): 160 General Appearance: no apparent distress Respiratory/Chest: lungs clear Abdomen: soft Objective no change SUSHIL BRAUN Jun 05, 2017 15:58
--- NOTE | 2017-06-05 21:46 | General Progress Note ---
Assessment/Plan Problem List: (1) Hypokalemia ICD Codes: E87.6 - Hypokalemia SNOMED: 75453995 (2) Alcohol abuse ICD Codes: F10.10 - Alcohol abuse, uncomplicated SNOMED: 41876941 (3) Hyponatremia ICD Codes: E87.1 - Hypo-osmolality and hyponatremia SNOMED: 53851777 (4) Alcohol abuse (5) Injury of head (6) Abdominal wall hernia ICD Codes: K43.9 - Ventral hernia without obstruction or gangrene SNOMED: 288631979 Status: progressing Assessment/Plan afebrile elev lft etoh abuse depression lytes improving no significant abdominal pain Subjective ROS Limited/Unobtainable: Yes Constitutional: Reports: no symptoms Allergies: Coded Allergies: No Known Allergies (Unverified , 11/25/13) Objective Last 24 Hour Vital Signs Date Time Temp Pulse Resp B/P (MAP) Pulse Ox O2 Delivery O2 Flow Rate FiO2 06/05/17 20:00 97.5 66 18 96/59 100 Room Air 06/05/17 19:47 97.5 66 18 96/59 100 06/05/17 16:15 97.9 64 18 107/50 99 Room Air 06/05/17 11:54 97.9 62 18 123/81 99 Room Air 06/05/17 07:50 97.3 65 15 96/62 Room Air 06/05/17 04:00 97.9 67 18 104/60 99 Room Air 06/05/17 00:00 98.4 77 18 98/62 98 Room Air Intake and Output 06/05/17 06/06/17 19:00 07:00 Intake Total 360 ml Balance 360 ml Intake Oral 360 ml # Voids 3 Laboratory Tests 06/05/17 06:40: White Blood Count 5.5, Red Blood Count 3.62L, Hemoglobin 13.5, Hematocrit 40.3, Mean Corpuscular Volume 111H, Mean Corpuscular Hemoglobin 37.4H, Mean Corpuscular Hemoglobin Concent 33.6, Red Cell Distribution Width 12.6, Platelet Count 135L, Mean Platelet Volume 10.9H, Neutrophils (%) (Auto) , Lymphocytes (% ) (Auto) , Monocytes (%) (Auto) , Eosinophils (%) (Auto) , Basophils (%) (Auto) , Differential Total Cells Counted 100, Neutrophils % (Manual) 46, Lymphocytes % (Manual) 34, Monocytes % (Manual) 14H, Eosinophils % (Manual) 5H, Basophils % (Manual) 1, Band Neutrophils 0, Platelet Estimate DecreasedL, Platelet Morphology Normal, Macrocytosis 1+, Stomatocytes Occasional, Reticulocyte Count 1.3, Prothrombin Time 10.6, Prothromb Time International Ratio 1.0, Sodium Level 139, Potassium Level 3.6, Chloride Level 100, Carbon Dioxide Level 31H, Anion Gap 8, Blood Urea Nitrogen 5L, Creatinine 0.5, Estimat Glomerular Filtration Rate > 60, Glucose Level 88, Hemoglobin A1c 4.7, Uric Acid 6.3, Calcium Level 8.9, Phosphorus Level 3.3, Magnesium Level 1.8, Total Bilirubin 0.7, Gamma Glutamyl Transpeptidase 728H, Aspartate Amino Transf (AST/SGOT) 121H , Alanine Aminotransferase (ALT/SGPT) 76H, Alkaline Phosphatase 144H, Total Creatine Kinase 45, C-Reactive Protein, Quantitative < 0.3, Pro-B-Type Natriuretic Peptide 109, Total Protein 5.7L, Albumin 3.3L, Globulin 2.4, Albumin /Globulin Ratio 1.3, Triglycerides Level 85, Cholesterol Level 160, LDL Cholesterol 88, HDL Cholesterol 55, Cholesterol/HDL Ratio 2.9L, Thyroid Stimulating Hormone (TSH) 2.910, Hepatitis A IgM Antibody [Pending], Hepatitis B Surface Antigen [Pending], Hepatitis B Core IgM Antibody [Pending], Hepatitis C Antibody [Pending] 06/05/17 14:30: Stool Occult Blood Negative 06/05/17 19:58: Cytomegalovirus DNA Qual (PCR) [Pending], Herpes Simplex Virus I IgM Ab (IFA) [ Pending], Herpes Simplex Virus II IgM Ab (IFA [Pending], Monoscreen [Pending] Height (Feet): 5 Height (Inches): 9.00 Weight (Pounds): 160 Cardiovascular: normal rate Jules Guardado MD Jun 05, 2017 21:46
--- NOTE | 2017-06-05 22:13 | General Progress Note ---
Assessment/Plan Assessment/Plan 1. Macrocytosis, I would say is directly related to the patient's history of alcohol abuse. The patient noted to be with transaminitis with a 2:1 ratio of AST and ALT, which is positive for alcohol abuse. Macrocytosis should improve after alcohol use is decreased 2. Pancytopenia, likely secondary to underlying alcohol abuse, which should improve as well. 3. Hyponatremia, IV fluids as needed. 4. Transaminitis. 5. Abdominal pain with nausea and vomiting. --> resolved Subjective Constitutional: Reports: no symptoms HEENT: Reports: no symptoms Cardiovascular: Reports: no symptoms Respiratory: Reports: no symptoms Gastrointestinal/Abdominal: Reports: no symptoms Genitourinary: Reports: no symptoms Neurologic/Psychiatric: Reports: no symptoms Endocrine: Reports: no symptoms Hematologic/Lymphatic: Reports: no symptoms Allergies: Coded Allergies: No Known Allergies (Unverified , 11/25/13) Subjective no complaints Objective Last 24 Hour Vital Signs Date Time Temp Pulse Resp B/P (MAP) Pulse Ox O2 Delivery O2 Flow Rate FiO2 06/05/17 20:00 97.5 66 18 96/59 100 Room Air 06/05/17 19:47 97.5 66 18 96/59 100 06/05/17 16:15 97.9 64 18 107/50 99 Room Air 06/05/17 11:54 97.9 62 18 123/81 99 Room Air 06/05/17 07:50 97.3 65 15 96/62 Room Air 06/05/17 04:00 97.9 67 18 104/60 99 Room Air 06/05/17 00:00 98.4 77 18 98/62 98 Room Air Intake and Output 06/05/17 06/06/17 19:00 07:00 Intake Total 360 ml Balance 360 ml Intake Oral 360 ml # Voids 3 Laboratory Tests 06/05/17 06:40: White Blood Count 5.5, Red Blood Count 3.62L, Hemoglobin 13.5, Hematocrit 40.3, Mean Corpuscular Volume 111H, Mean Corpuscular Hemoglobin 37.4H, Mean Corpuscular Hemoglobin Concent 33.6, Red Cell Distribution Width 12.6, Platelet Count 135L, Mean Platelet Volume 10.9H, Neutrophils (%) (Auto) , Lymphocytes (% ) (Auto) , Monocytes (%) (Auto) , Eosinophils (%) (Auto) , Basophils (%) (Auto) , Differential Total Cells Counted 100, Neutrophils % (Manual) 46, Lymphocytes % (Manual) 34, Monocytes % (Manual) 14H, Eosinophils % (Manual) 5H, Basophils % (Manual) 1, Band Neutrophils 0, Platelet Estimate DecreasedL, Platelet Morphology Normal, Macrocytosis 1+, Stomatocytes Occasional, Reticulocyte Count 1.3, Prothrombin Time 10.6, Prothromb Time International Ratio 1.0, Sodium Level 139, Potassium Level 3.6, Chloride Level 100, Carbon Dioxide Level 31H, Anion Gap 8, Blood Urea Nitrogen 5L, Creatinine 0.5, Estimat Glomerular Filtration Rate > 60, Glucose Level 88, Hemoglobin A1c 4.7, Uric Acid 6.3, Calcium Level 8.9, Phosphorus Level 3.3, Magnesium Level 1.8, Total Bilirubin 0.7, Gamma Glutamyl Transpeptidase 728H, Aspartate Amino Transf (AST/SGOT) 121H , Alanine Aminotransferase (ALT/SGPT) 76H, Alkaline Phosphatase 144H, Total Creatine Kinase 45, C-Reactive Protein, Quantitative < 0.3, Pro-B-Type Natriuretic Peptide 109, Total Protein 5.7L, Albumin 3.3L, Globulin 2.4, Albumin /Globulin Ratio 1.3, Triglycerides Level 85, Cholesterol Level 160, LDL Cholesterol 88, HDL Cholesterol 55, Cholesterol/HDL Ratio 2.9L, Thyroid Stimulating Hormone (TSH) 2.910, Hepatitis A IgM Antibody [Pending], Hepatitis B Surface Antigen [Pending], Hepatitis B Core IgM Antibody [Pending], Hepatitis C Antibody [Pending] 06/05/17 14:30: Stool Occult Blood Negative 06/05/17 19:58: Cytomegalovirus DNA Qual (PCR) [Pending], Herpes Simplex Virus I IgM Ab (IFA) [ Pending], Herpes Simplex Virus II IgM Ab (IFA [Pending], Monoscreen [Pending] Height (Feet): 5 Height (Inches): 9.00 Weight (Pounds): 160 General Appearance: no apparent distress EENT: normal ENT inspection Neck: normal alignment Abdomen: non tender Skin: warm/dry Lauri Cancino Jun 05, 2017 22:13
--- NOTE | 2017-06-05 22:41 | General Progress Note ---
Assessment/Plan Status: stable, progressing Subjective Neurologic/Psychiatric: Reports: anxiety, depressed, emotional problems Allergies: Coded Allergies: No Known Allergies (Unverified , 11/25/13) Objective Last 24 Hour Vital Signs Date Time Temp Pulse Resp B/P (MAP) Pulse Ox O2 Delivery O2 Flow Rate FiO2 06/05/17 20:00 97.5 66 18 96/59 100 Room Air 06/05/17 19:47 97.5 66 18 96/59 100 06/05/17 16:15 97.9 64 18 107/50 99 Room Air 06/05/17 11:54 97.9 62 18 123/81 99 Room Air 06/05/17 07:50 97.3 65 15 96/62 Room Air 06/05/17 04:00 97.9 67 18 104/60 99 Room Air 06/05/17 00:00 98.4 77 18 98/62 98 Room Air Intake and Output 06/05/17 06/06/17 19:00 07:00 Intake Total 360 ml Balance 360 ml Intake Oral 360 ml # Voids 3 Laboratory Tests 06/05/17 06:40: White Blood Count 5.5, Red Blood Count 3.62L, Hemoglobin 13.5, Hematocrit 40.3, Mean Corpuscular Volume 111H, Mean Corpuscular Hemoglobin 37.4H, Mean Corpuscular Hemoglobin Concent 33.6, Red Cell Distribution Width 12.6, Platelet Count 135L, Mean Platelet Volume 10.9H, Neutrophils (%) (Auto) , Lymphocytes (% ) (Auto) , Monocytes (%) (Auto) , Eosinophils (%) (Auto) , Basophils (%) (Auto) , Differential Total Cells Counted 100, Neutrophils % (Manual) 46, Lymphocytes % (Manual) 34, Monocytes % (Manual) 14H, Eosinophils % (Manual) 5H, Basophils % (Manual) 1, Band Neutrophils 0, Platelet Estimate DecreasedL, Platelet Morphology Normal, Macrocytosis 1+, Stomatocytes Occasional, Reticulocyte Count 1.3, Prothrombin Time 10.6, Prothromb Time International Ratio 1.0, Sodium Level 139, Potassium Level 3.6, Chloride Level 100, Carbon Dioxide Level 31H, Anion Gap 8, Blood Urea Nitrogen 5L, Creatinine 0.5, Estimat Glomerular Filtration Rate > 60, Glucose Level 88, Hemoglobin A1c 4.7, Uric Acid 6.3, Calcium Level 8.9, Phosphorus Level 3.3, Magnesium Level 1.8, Total Bilirubin 0.7, Gamma Glutamyl Transpeptidase 728H, Aspartate Amino Transf (AST/SGOT) 121H , Alanine Aminotransferase (ALT/SGPT) 76H, Alkaline Phosphatase 144H, Total Creatine Kinase 45, C-Reactive Protein, Quantitative < 0.3, Pro-B-Type Natriuretic Peptide 109, Total Protein 5.7L, Albumin 3.3L, Globulin 2.4, Albumin /Globulin Ratio 1.3, Triglycerides Level 85, Cholesterol Level 160, LDL Cholesterol 88, HDL Cholesterol 55, Cholesterol/HDL Ratio 2.9L, Thyroid Stimulating Hormone (TSH) 2.910, Hepatitis A IgM Antibody [Pending], Hepatitis B Surface Antigen [Pending], Hepatitis B Core IgM Antibody [Pending], Hepatitis C Antibody [Pending] 06/05/17 14:30: Stool Occult Blood Negative 06/05/17 19:58: Cytomegalovirus DNA Qual (PCR) [Pending], Herpes Simplex Virus I IgM Ab (IFA) [ Pending], Herpes Simplex Virus II IgM Ab (IFA [Pending], Monoscreen [Pending] Height (Feet): 5 Height (Inches): 9.00 Weight (Pounds): 160 General Appearance: no apparent distress, alert Neurologic: alert, oriented x 3, responsive, depressed affect Donald Davila M.D. Jun 05, 2017 22:41
[2017-06-06] VITALS (7 sets, daily range): BP systolic 90–112; BP diastolic 54–73
--- NOTE | 2017-06-06 02:00 | Consultation ---
DATE OF CONSULTATION: 06/05/2017 INFECTIOUS DISEASE CONSULTATION CONSULTING PHYSICIAN: Layne Yang M.D. REQUESTING PHYSICIAN: Jules Guardado M.D. REASON FOR CONSULTATION: Hepatitis, rule out infectious etiology. HISTORY OF PRESENT ILLNESS: The patient is a 57-year-old female with past medical history of alcohol abuse, who was sent to [facility] for binge drink and unresponsiveness. As per family, the patient stopped responding after she had alcohol drink. There was no vomiting or diarrhea. No blood in her stool. No fall or trauma. The patient has been drinking since her . The patient was found to have elevated transaminase during her workup with low sodium and potassium level, so she was admitted to the hospital and I was consulted by the primary provider to rule out infectious etiology of her hepatitis. The patient also had history of abdominal wall hernia four times, she had surgical repair, but no significant improvement, so she also had complained of pain in the abdominal wall today. PAST MEDICAL HISTORY: Significant for alcohol abuse. PAST SURGICAL HISTORY: Negative. ALLERGIES: She has no known drug allergy. MEDICATIONS: She is on fluoxetine, pantoprazole, thiamine, and diazepam. FAMILY HISTORY: Noncontributory. SOCIAL HISTORY: She is . Her passed a couple of years ago. She has been drinking alcohol on a daily basis. She did not admit how much. No recent drugs or tobacco. REVIEW OF SYSTEMS: A 14-point of systems reviewed were all negative apart from the one I mentioned above in my History and Physical. PHYSICAL EXAMINATION: VITAL SIGNS: Temperature 97.9 degrees, pulse 62, respirations 18, blood pressure 123/81, and saturation 99% on room air. GENERAL: A middle-aged female, obese, up in bed, awake, alert, oriented, not in distress. HEENT: Normocephalic and atraumatic. Pupils are reactive to light equally. Moist oral mucosa. No exudate. NECK: Supple. No lymphadenopathy. CARDIOVASCULAR: Regular rate and rhythm. No murmur. No gallop. LUNGS: Clear bilaterally. No wheezing or rhonchi. Normal breathing effort. ABDOMEN: Soft, obese, and tender in the abdominal wall area with multiple hernia. No evidence of strangulation. No ascites. No organomegaly. No rebound. EXTREMITIES: No edema or cyanosis. SKIN: No rash or hives. LABORATORY DATA: Labs showed white count of 5.5, hemoglobin of 13.5, and platelet count of 135,000. BUN of 5 and creatinine of 0.5. Urinalysis was negative for urine infection. IMAGING: Head CT scan did not show any acute bleeding or pathology. Venous Doppler of both legs was negative for DVT. ASSESSMENT AND RECOMMENDATION: 1. Acute hepatitis, rule out infectious etiology. We will send hepatitis panel for screening. We will send cytomegalovirus viral serology and Monospot test to rule out mononucleosis. Continue to monitor liver function tests. Avoid hepatotoxic medicine. Her transaminase is most likely due to alcohol binge drink. Recommend to follow up with gastrointestinal. May need to rule out autoimmune etiology if her workup is negative. 2. Abdominal wall hernia pending CT scan of the abdomen and pelvis for further evaluation and management. Follow up with surgery. 3. Alcohol abuse. Recommend counseling and rehabilitation. Watch for DT while in the hospital. Thank you for the consult. Infectious Disease will continue to follow. Layne Yang M.D. DR: CHELSEY JOB#: [id number] CC:
[2017-06-06 07:25] LABS: BASOPHILS % (AUTO) 1.5 % (0.0-2.0); EOSINOPHILS % (AUTO) 2.1 % (0.0-3.0); LYMPHOCYTES % (AUTO) 28.8 % (20.0-45.0); MEAN CORPUSCULAR HEMOGLOBIN 35.9 PG (27.0-31.0); MEAN CORPUSCULAR HGB CONC 32.7 G/DL (32.0-36.0); MEAN CORPUSCULAR VOLUME 110 FL (80-99); MEAN PLATELET VOLUME 11.6 FL (6.5-10.1); MONOCYTES % (AUTO) 15.3 % (1.0-10.0); NEUTROPHILS % (AUTO) 52.3 % (45.0-75.0); PLATELET COUNT 156 K/UL (150-450); RED BLOOD COUNT 3.62 M/UL (4.20-5.40); RED CELL DISTRIBUTION WIDTH 12.4 % (11.6-14.8); WHITE BLOOD COUNT 5.5 K/UL (4.8-10.8)
[2017-06-06 07:49] LABS: ALANINE AMINOTRANSFERASE 64 U/L (3-33); ALBUMIN/GLOBULIN RATIO 1.2 (1.0-2.7); ANION GAP 6 (5-15); ASPARTATE AMINO TRANSFERASE 92 U/L (5-40); CALCIUM 8.5 mg/dL (8.6-10.2); CARBON DIOXIDE 31 mEQ/L (20-30); CHLORIDE 105 mEQ/L (98-107); CREATININE 0.6 mg/dL (0.5-0.9); GLOMERULAR FILTRATION RATE > 60 mL/min (>60); HEMOLYSIS 6; SODIUM 142 mEQ/L (135-145); TOTAL PROTEIN 5.6 g/dL (6.6-8.7)
[2017-06-06] MEDS: Thiamine 100mg tab ORAL SCH (08:24)
--- NOTE | 2017-06-06 09:55 | General Progress Note ---
Assessment/Plan Status: stable Assessment/Plan Primary Impression: Hyponatremia resolved- Hypokalemia resolved Alcohol abuse high LFTs Plan: Hydrate po Supplements- Per orders DC planning?? Subjective ROS Limited/Unobtainable: No Constitutional: Reports: malaise Allergies: Coded Allergies: No Known Allergies (Unverified , 11/25/13) Objective Last 24 Hour Vital Signs Date Time Temp Pulse Resp B/P (MAP) Pulse Ox O2 Delivery O2 Flow Rate FiO2 06/06/17 08:31 97.5 71 06/06/17 08:11 68 102/66 06/06/17 04:00 97.4 71 20 90/60 Room Air 06/06/17 00:00 98.1 65 18 99/66 97 Room Air 06/05/17 20:00 97.5 66 18 96/59 100 Room Air 06/05/17 19:47 97.5 66 18 96/59 100 06/05/17 16:15 97.9 64 18 107/50 99 Room Air 06/05/17 11:54 97.9 62 18 123/81 99 Room Air Intake and Output 06/06/17 06/07/17 19:00 07:00 Intake Total 360 ml Balance 360 ml Intake Oral 360 ml Laboratory Tests 06/05/17 14:30: Stool Occult Blood Negative 06/05/17 19:58: Cytomegalovirus DNA Qual (PCR) [Pending], Herpes Simplex Virus I IgM Ab (IFA) [ Pending], Herpes Simplex Virus II IgM Ab (IFA [Pending], Monoscreen [Pending] 06/06/17 05:05: White Blood Count 5.5, Red Blood Count 3.62L, Hemoglobin 13.0, Hematocrit 39.7, Mean Corpuscular Volume 110H, Mean Corpuscular Hemoglobin 35.9H, Mean Corpuscular Hemoglobin Concent 32.7, Red Cell Distribution Width 12.4, Platelet Count 156, Mean Platelet Volume 11.6H, Neutrophils (%) (Auto) 52.3, Lymphocytes (%) (Auto) 28.8, Monocytes (%) (Auto) 15.3H, Eosinophils (%) (Auto) 2.1, Basophils (%) (Auto) 1.5, Sodium Level 142, Potassium Level 4.0, Chloride Level 105, Carbon Dioxide Level 31H, Anion Gap 6, Blood Urea Nitrogen 9, Creatinine 0.6, Estimat Glomerular Filtration Rate > 60, Glucose Level 87, Calcium Level 8.5L, Total Bilirubin 0.4, Aspartate Amino Transf (AST/SGOT) 92H, Alanine Aminotransferase (ALT/SGPT) 64H, Alkaline Phosphatase 158H, Total Protein 5.6L, Albumin 3.1L, Globulin 2.5, Albumin/Globulin Ratio 1.2, Folate [Pending] Height (Feet): 5 Height (Inches): 9.00 Weight (Pounds): 160 General Appearance: no apparent distress Objective no change SUSHIL BRAUN Jun 06, 2017 09:54
--- NOTE | 2017-06-06 13:26 | General Progress Note ---
Assessment/Plan Assessment/Plan 1. Macrocytosis, I would say is directly related to the patient's history of alcohol abuse. -->The patient noted to be with transaminitis with a 2:1 ratio of AST and ALT, which is positive for alcohol abuse. --> should improve after alcohol use is decreased 2. Pancytopenia, likely secondary to underlying alcohol abuse, which should improve as well. 3. Hyponatremia --> resolved 4. Transaminitis. 5. Abdominal pain with nausea and vomiting. --> resolved Subjective Constitutional: Reports: no symptoms HEENT: Reports: no symptoms Cardiovascular: Reports: no symptoms Respiratory: Reports: no symptoms Gastrointestinal/Abdominal: Reports: no symptoms Genitourinary: Reports: no symptoms Neurologic/Psychiatric: Reports: no symptoms Endocrine: Reports: no symptoms Hematologic/Lymphatic: Reports: no symptoms Allergies: Coded Allergies: No Known Allergies (Unverified , 11/25/13) Subjective no complaints Objective Last 24 Hour Vital Signs Date Time Temp Pulse Resp B/P (MAP) Pulse Ox O2 Delivery O2 Flow Rate FiO2 06/06/17 12:11 97.9 70 20 99/73 100 Room Air 06/06/17 08:31 97.5 71 06/06/17 08:11 68 102/66 06/06/17 04:00 97.4 71 20 90/60 Room Air 06/06/17 00:00 98.1 65 18 99/66 97 Room Air 06/05/17 20:00 97.5 66 18 96/59 100 Room Air 06/05/17 19:47 97.5 66 18 96/59 100 06/05/17 16:15 97.9 64 18 107/50 99 Room Air Intake and Output 06/06/17 06/07/17 19:00 07:00 Intake Total 360 ml Balance 360 ml Intake Oral 360 ml Laboratory Tests 06/05/17 14:30: Stool Occult Blood Negative 06/05/17 19:58: Cytomegalovirus DNA Qual (PCR) [Pending], Herpes Simplex Virus I IgM Ab (IFA) [ Pending], Herpes Simplex Virus II IgM Ab (IFA [Pending], Monoscreen [Pending] 06/06/17 05:05: White Blood Count 5.5, Red Blood Count 3.62L, Hemoglobin 13.0, Hematocrit 39.7, Mean Corpuscular Volume 110H, Mean Corpuscular Hemoglobin 35.9H, Mean Corpuscular Hemoglobin Concent 32.7, Red Cell Distribution Width 12.4, Platelet Count 156, Mean Platelet Volume 11.6H, Neutrophils (%) (Auto) 52.3, Lymphocytes (%) (Auto) 28.8, Monocytes (%) (Auto) 15.3H, Eosinophils (%) (Auto) 2.1, Basophils (%) (Auto) 1.5, Sodium Level 142, Potassium Level 4.0, Chloride Level 105, Carbon Dioxide Level 31H, Anion Gap 6, Blood Urea Nitrogen 9, Creatinine 0.6, Estimat Glomerular Filtration Rate > 60, Glucose Level 87, Calcium Level 8.5L, Total Bilirubin 0.4, Aspartate Amino Transf (AST/SGOT) 92H, Alanine Aminotransferase (ALT/SGPT) 64H, Alkaline Phosphatase 158H, Total Protein 5.6L, Albumin 3.1L, Globulin 2.5, Albumin/Globulin Ratio 1.2, Folate [Pending] Height (Feet): 5 Height (Inches): 9.00 Weight (Pounds): 160 General Appearance: no apparent distress EENT: normal ENT inspection Neck: normal alignment Extremities: no calf tenderness Edema: no edema noted Pedal (L), no edema noted Pedal (R) Neurologic: spanish instructor II-XII grossly normal Skin: warm/dry Lauri Cancino Jun 06, 2017 13:26
--- NOTE | 2017-06-06 15:32 | General Progress Note ---
Assessment/Plan Assessment/Plan Assessment - anterior abd wall hernia - N/V - resolved - abnormal LFT - EtOH hepatitis Recommendations - po diet as tolerated - check hepatitis serologies --> negative - check CT scan of abd and pelvis --> fatty liver - check stool OB --> negative Subjective Allergies: Coded Allergies: No Known Allergies (Unverified , 11/25/13) Subjective uneventful night no vomiting no pain no complaints LFT lower Objective Last 24 Hour Vital Signs Date Time Temp Pulse Resp B/P (MAP) Pulse Ox O2 Delivery O2 Flow Rate FiO2 06/06/17 12:11 97.9 70 20 99/73 100 Room Air 06/06/17 08:31 97.5 71 06/06/17 08:11 68 102/66 06/06/17 04:00 97.4 71 20 90/60 Room Air 06/06/17 00:00 98.1 65 18 99/66 97 Room Air 06/05/17 20:00 97.5 66 18 96/59 100 Room Air 06/05/17 19:47 97.5 66 18 96/59 100 06/05/17 16:15 97.9 64 18 107/50 99 Room Air Intake and Output 06/06/17 06/07/17 19:00 07:00 Intake Total 720 ml Balance 720 ml Intake Oral 720 ml # Voids 3 Laboratory Tests 06/05/17 19:58: Cytomegalovirus DNA Qual (PCR) [Pending], Herpes Simplex Virus I IgM Ab (IFA) [ Pending], Herpes Simplex Virus II IgM Ab (IFA [Pending], Monoscreen [Pending] 06/06/17 05:05: White Blood Count 5.5, Red Blood Count 3.62L, Hemoglobin 13.0, Hematocrit 39.7, Mean Corpuscular Volume 110H, Mean Corpuscular Hemoglobin 35.9H, Mean Corpuscular Hemoglobin Concent 32.7, Red Cell Distribution Width 12.4, Platelet Count 156, Mean Platelet Volume 11.6H, Neutrophils (%) (Auto) 52.3, Lymphocytes (%) (Auto) 28.8, Monocytes (%) (Auto) 15.3H, Eosinophils (%) (Auto) 2.1, Basophils (%) (Auto) 1.5, Sodium Level 142, Potassium Level 4.0, Chloride Level 105, Carbon Dioxide Level 31H, Anion Gap 6, Blood Urea Nitrogen 9, Creatinine 0.6, Estimat Glomerular Filtration Rate > 60, Glucose Level 87, Calcium Level 8.5L, Total Bilirubin 0.4, Aspartate Amino Transf (AST/SGOT) 92H, Alanine Aminotransferase (ALT/SGPT) 64H, Alkaline Phosphatase 158H, Total Protein 5.6L, Albumin 3.1L, Globulin 2.5, Albumin/Globulin Ratio 1.2, Folate [Pending] Height (Feet): 5 Height (Inches): 9.00 Weight (Pounds): 160 Cardiovascular: diastolic murmur Objective WDWN L woman NCAT supple CTA RRR Soft ND NT, (+) wound hernia w/o change no edema non focal DAVE AVILA Jun 06, 2017 15:32
--- NOTE | 2017-06-06 18:35 | Infectious Diseases Prog Note ---
Assessment/Plan Problems: (1) Hepatitis, acute Assessment & Plan: hepatitis panel is negative , most likely due to alcohol abuse, avoid hepatotoxic meds , GI is following, rule out autoimmune etiology too , await monospot and CMV test (2) Abdominal wall hernia Assessment & Plan: await CT of the abdomen for further evaluation and management . consult general surgery (3) Alcohol abuse Assessment & Plan: recommend counseling and rehabilitations. watch for DT Subjective Constitutional: Reports: no symptoms HEENT: Reports: no symptoms Respiratory: Reports: no symptoms Breasts: Reports: no symptoms Cardiovascular: Reports: no symptoms Gastrointestinal/Abdominal: Reports: other - pain Genitourinary: Reports: no symptoms Neurologic: Reports: no symptoms Psychiatric: Reports: no symptoms Skin: Reports: no symptoms Endocrine: Reports: no symptoms Hematologic: Reports: no symptoms Musculoskeletal: Reports: no symptoms Allergies: Coded Allergies: No Known Allergies (Unverified , 11/25/13) Objective Vital Signs Last 24 Hour Vital Signs Date Time Temp Pulse Resp B/P (MAP) Pulse Ox O2 Delivery O2 Flow Rate FiO2 06/06/17 16:12 97.2 97 20 112/56 100 Room Air 06/06/17 12:11 97.9 70 20 99/73 100 Room Air 06/06/17 08:31 97.5 71 06/06/17 08:11 68 102/66 06/06/17 04:00 97.4 71 20 90/60 Room Air 06/06/17 00:00 98.1 65 18 99/66 97 Room Air 06/05/17 20:00 97.5 66 18 96/59 100 Room Air 06/05/17 19:47 97.5 66 18 96/59 100 Height (Feet): 5 Height (Inches): 9.00 Weight (Pounds): 160 General Appearance: WD/WN, no acute distress HEENT: normocephalic, atraumatic, anicteric, mucous membranes moist, PERRL Respiratory/Chest: chest wall non-tender, lungs clear, normal breath sounds, no respiratory distress, no accessory muscle use Cardiovascular: normal peripheral pulses, normal rate, regular rhythm, no gallop/murmur, no JVD Abdomen: normal bowel sounds, no organomegaly, non distended, no mass, no scars , tender Extremities: no cyanosis, no clubbing Skin: no rash, no lesions, no ulcers Neurologic/Psychiatric: no motor/sensory deficits, alert, oriented x 3 Laboratory Tests Test 06/05/17 19:58 06/06/17 05:05 Cytomegalovirus DNA Qual (PCR) Pending Herpes Simplex Virus I IgM Ab (IFA) Pending Herpes Simplex Virus II IgM Ab (IFA Pending Monoscreen Pending White Blood Count 5.5 K/UL (4.8-10.8) Red Blood Count 3.62 M/UL (4.20-5.40) L Hemoglobin 13.0 G/DL (12.0-16.0) Hematocrit 39.7 % (37.0-47.0) Mean Corpuscular Volume 110 FL (80-99) H Mean Corpuscular Hemoglobin 35.9 PG (27.0-31.0) H Mean Corpuscular Hemoglobin Concent 32.7 G/DL (32.0-36.0) Red Cell Distribution Width 12.4 % (11.6-14.8) Platelet Count 156 K/UL (150-450) Mean Platelet Volume 11.6 FL (6.5-10.1) H Neutrophils (%) (Auto) 52.3 % (45.0-75.0) Lymphocytes (%) (Auto) 28.8 % (20.0-45.0) Monocytes (%) (Auto) 15.3 % (1.0-10.0) H Eosinophils (%) (Auto) 2.1 % (0.0-3.0) Basophils (%) (Auto) 1.5 % (0.0-2.0) Sodium Level 142 mEQ/L (135-145) Potassium Level 4.0 mEQ/L (3.4-4.9) Chloride Level 105 mEQ/L (98-107) Carbon Dioxide Level 31 mEQ/L (20-30) H Anion Gap 6 (5-15) Blood Urea Nitrogen 9 mg/dL (7-23) Creatinine 0.6 mg/dL (0.5-0.9) Estimat Glomerular Filtration Rate > 60 mL/min (>60) Glucose Level 87 mg/dL (74-106) Calcium Level 8.5 mg/dL (8.6-10.2) L Total Bilirubin 0.4 mg/dL (0.0-1.2) Aspartate Amino Transf (AST/SGOT) 92 U/L (5-40) H Alanine Aminotransferase (ALT/SGPT) 64 U/L (3-33) H Alkaline Phosphatase 158 U/L (35-104) H Total Protein 5.6 g/dL (6.6-8.7) L Albumin 3.1 g/dL (3.5-5.2) L Globulin 2.5 g/dL Albumin/Globulin Ratio 1.2 (1.0-2.7) Folate Pending Current Medications Medications (Trade) Dose Ordered Sig/Neeraj Route PRN Reason Start Time Stop Time Status Last Admin Dose Admin Diazepam (Valium) 10 mg EVERY 4 HOURS PRN ORAL agitaiton 06/04/17 12:30 06/11/17 12:29 06/06/17 16:01 Fluoxetine HCl (PROzac) 20 mg DAILY ORAL 06/05/17 09:00 07/05/17 08:59 06/06/17 08:25 Pantoprazole (Protonix) 40 mg EVERY 12 HOURS ORAL 06/04/17 21:00 07/04/17 20:59 06/06/17 08:24 Thiamine HCl (Vitamin B1) 100 mg DAILY ORAL 06/04/17 13:00 07/04/17 12:59 06/06/17 08:24 Layne Yang M.D. Jun 06, 2017 18:35
[2017-06-07 04:00] VITALS: BP 115/64
[2017-06-07 08:00] VITALS: BP 111/71
[2017-06-07] MEDS: Thiamine 100mg tab ORAL SCH (09:53)
[2017-06-07 11:25] LABS: MONOTEST Negative (Negative)
--- NOTE | 2017-06-07 11:33 | General Progress Note ---
Assessment/Plan Status: stable Assessment/Plan Primary Impression: Hyponatremia resolved- Hypokalemia resolved Alcohol abuse high LFTs improving Plan: Hydrate po Supplements- Per orders DC planning?? Subjective ROS Limited/Unobtainable: No Allergies: Coded Allergies: No Known Allergies (Unverified , 11/25/13) Objective Last 24 Hour Vital Signs Date Time Temp Pulse Resp B/P (MAP) Pulse Ox O2 Delivery O2 Flow Rate FiO2 06/07/17 08:00 97.4 54 18 111/71 95 Room Air 06/07/17 04:00 96.8 70 20 115/64 100 Room Air 06/06/17 23:58 96.8 72 20 111/54 100 Room Air 06/06/17 20:45 96.8 54 20 108/65 100 Room Air 06/06/17 16:12 97.2 97 20 112/56 100 Room Air 06/06/17 12:11 97.9 70 20 99/73 100 Room Air Intake and Output 06/07/17 06/08/17 19:00 07:00 Intake Total 240 ml Balance 240 ml Intake Oral 240 ml # Voids 1 Height (Feet): 5 Height (Inches): 9.00 Weight (Pounds): 160 General Appearance: no apparent distress Objective no change SUSHIL BRAUN Jun 07, 2017 11:33
[2017-06-07 11:58] VITALS: BP 101/52
[2017-06-07 16:00] VITALS: BP 104/62
--- NOTE | 2017-06-07 16:47 | Infectious Diseases Prog Note ---
Assessment/Plan Problems: (1) Hepatitis, acute Assessment & Plan: hepatitis panel is negative , most likely due to alcohol abuse, avoid hepatotoxic meds , GI is following, rule out autoimmune etiology too , monospot is negative , CMV and herpes are pending . (2) Abdominal wall hernia Assessment & Plan: await CT of the abdomen for further evaluation and management . consult general surgery (3) Alcohol abuse Assessment & Plan: recommend counseling and rehabilitations. watch for DT Subjective Constitutional: Reports: no symptoms HEENT: Reports: no symptoms Respiratory: Reports: no symptoms Breasts: Reports: no symptoms Cardiovascular: Reports: no symptoms Gastrointestinal/Abdominal: Reports: no symptoms Genitourinary: Reports: no symptoms Neurologic: Reports: no symptoms Psychiatric: Reports: no symptoms Skin: Reports: no symptoms Endocrine: Reports: no symptoms Hematologic: Reports: no symptoms Allergies: Coded Allergies: No Known Allergies (Unverified , 11/25/13) Objective Vital Signs Last 24 Hour Vital Signs Date Time Temp Pulse Resp B/P (MAP) Pulse Ox O2 Delivery O2 Flow Rate FiO2 06/07/17 16:00 97.0 58 18 104/62 98 Room Air 06/07/17 11:58 97.9 58 18 101/52 98 Room Air 06/07/17 08:00 97.4 54 18 111/71 95 Room Air 06/07/17 04:00 96.8 70 20 115/64 100 Room Air 06/06/17 23:58 96.8 72 20 111/54 100 Room Air 06/06/17 20:45 96.8 54 20 108/65 100 Room Air Height (Feet): 5 Height (Inches): 9.00 Weight (Pounds): 160 General Appearance: WD/WN, no acute distress HEENT: normocephalic, atraumatic, anicteric, mucous membranes moist, PERRL, EOMI, pharynx normal, supple, no JVD Respiratory/Chest: chest wall non-tender, lungs clear, normal breath sounds, no respiratory distress, no accessory muscle use Cardiovascular: normal peripheral pulses, normal rate, regular rhythm, no gallop/murmur, no JVD Abdomen: normal bowel sounds, no organomegaly, non distended, no mass, no scars , tender Genitourinary: normal external genitalia Extremities: no cyanosis, no clubbing Skin: no rash, no lesions, no ulcers Neurologic/Psychiatric: alert, oriented x 3, responsive Lymphatic: no neck adenopathy, no groin adenopathy Musculoskeletal: normal muscle bulk Current Medications Medications (Trade) Dose Ordered Sig/Neeraj Route PRN Reason Start Time Stop Time Status Last Admin Dose Admin Diazepam (Valium) 10 mg EVERY 4 HOURS PRN ORAL agitaiton 06/04/17 12:30 06/11/17 12:29 06/07/17 16:39 Fluoxetine HCl (PROzac) 20 mg DAILY ORAL 06/05/17 09:00 07/05/17 08:59 06/07/17 09:52 Pantoprazole (Protonix) 40 mg EVERY 12 HOURS ORAL 06/04/17 21:00 07/04/17 20:59 06/07/17 09:52 Thiamine HCl (Vitamin B1) 100 mg DAILY ORAL 06/04/17 13:00 07/04/17 12:59 06/07/17 09:53 Layne Yang M.D. Jun 07, 2017 16:47
--- NOTE | 2017-06-07 17:11 | General Progress Note ---
Assessment/Plan Assessment/Plan Assessment - anterior abd wall hernia - N/V - resolved - abnormal LFT - EtOH hepatitis Recommendations - po diet as tolerated - check hepatitis serologies --> negative - check CT scan of abd and pelvis --> fatty liver - check stool OB --> negative Subjective Allergies: Coded Allergies: No Known Allergies (Unverified , 11/25/13) Subjective uneventful night no vomiting no pain no complaints Objective Last 24 Hour Vital Signs Date Time Temp Pulse Resp B/P (MAP) Pulse Ox O2 Delivery O2 Flow Rate FiO2 06/07/17 16:00 97.0 58 18 104/62 98 Room Air 06/07/17 11:58 97.9 58 18 101/52 98 Room Air 06/07/17 08:00 97.4 54 18 111/71 95 Room Air 06/07/17 04:00 96.8 70 20 115/64 100 Room Air 06/06/17 23:58 96.8 72 20 111/54 100 Room Air 06/06/17 20:45 96.8 54 20 108/65 100 Room Air Intake and Output 06/07/17 06/08/17 19:00 07:00 Intake Total 600 ml Balance 600 ml Intake Oral 600 ml # Voids 3 Height (Feet): 5 Height (Inches): 9.00 Weight (Pounds): 160 Objective WDWN L woman NCAT supple CTA RRR Soft ND NT, (+) wound hernia w/o change no edema non focal DAVE AVILA Jun 07, 2017 17:11
[2017-06-07 20:00] VITALS: BP 109/72
--- NOTE | 2017-06-07 22:44 | General Progress Note ---
Assessment/Plan Problem List: (1) Hypokalemia ICD Codes: E87.6 - Hypokalemia SNOMED: 84256823 (2) Alcohol abuse ICD Codes: F10.10 - Alcohol abuse, uncomplicated SNOMED: 83914742 (3) Hyponatremia ICD Codes: E87.1 - Hypo-osmolality and hyponatremia SNOMED: 72769117 (4) Alcohol abuse (5) Injury of head (6) Abdominal wall hernia ICD Codes: K43.9 - Ventral hernia without obstruction or gangrene SNOMED: 526235446 Status: progressing Assessment/Plan etoh abuse reviewed chart and labs and meds afebrile vitals stable lyte abnormality improving Subjective ROS Limited/Unobtainable: Yes Constitutional: Reports: no symptoms Allergies: Coded Allergies: No Known Allergies (Unverified , 11/25/13) Objective Last 24 Hour Vital Signs Date Time Temp Pulse Resp B/P (MAP) Pulse Ox O2 Delivery O2 Flow Rate FiO2 06/07/17 20:00 97.5 67 18 109/72 98 Room Air 06/07/17 16:00 97.0 58 18 104/62 98 Room Air 06/07/17 11:58 97.9 58 18 101/52 98 Room Air 06/07/17 08:00 97.4 54 18 111/71 95 Room Air 06/07/17 04:00 96.8 70 20 115/64 100 Room Air 06/06/17 23:58 96.8 72 20 111/54 100 Room Air Intake and Output 06/07/17 06/08/17 19:00 07:00 Intake Total 960 ml 180 ml Balance 960 ml 180 ml Intake Oral 960 ml 180 ml # Voids 5 1 # Bowel Movements 1 Height (Feet): 5 Height (Inches): 9.00 Weight (Pounds): 160 Jules Guardado MD Jun 07, 2017 22:44
--- NOTE | 2017-06-07 22:58 | General Progress Note ---
Assessment/Plan Assessment/Plan 1. Macrocytosis, I would say is directly related to the patient's history of alcohol abuse. -->The patient noted to be with transaminitis with a 2:1 ratio of AST and ALT, which is positive for alcohol abuse. --> should improve after alcohol use is decreased 2. Pancytopenia, likely secondary to underlying alcohol abuse 3. Hyponatremia --> resolved 4. Transaminitis. 5. Abdominal pain with nausea and vomiting. --> resolved Subjective Constitutional: Reports: no symptoms HEENT: Reports: no symptoms Cardiovascular: Reports: no symptoms Respiratory: Reports: no symptoms Gastrointestinal/Abdominal: Reports: no symptoms Genitourinary: Reports: no symptoms Neurologic/Psychiatric: Reports: no symptoms Endocrine: Reports: no symptoms Hematologic/Lymphatic: Reports: no symptoms Allergies: Coded Allergies: No Known Allergies (Unverified , 11/25/13) Subjective doing better, no pain Objective Last 24 Hour Vital Signs Date Time Temp Pulse Resp B/P (MAP) Pulse Ox O2 Delivery O2 Flow Rate FiO2 06/07/17 20:00 97.5 67 18 109/72 98 Room Air 06/07/17 16:00 97.0 58 18 104/62 98 Room Air 06/07/17 11:58 97.9 58 18 101/52 98 Room Air 06/07/17 08:00 97.4 54 18 111/71 95 Room Air 06/07/17 04:00 96.8 70 20 115/64 100 Room Air 06/06/17 23:58 96.8 72 20 111/54 100 Room Air Intake and Output 06/07/17 06/08/17 19:00 07:00 Intake Total 960 ml 180 ml Balance 960 ml 180 ml Intake Oral 960 ml 180 ml # Voids 5 1 # Bowel Movements 1 Height (Feet): 5 Height (Inches): 9.00 Weight (Pounds): 160 General Appearance: no apparent distress EENT: normal ENT inspection Neck: normal alignment Edema: trace edema Neurologic: detective supervisor II-XII grossly normal Skin: warm/dry Lauri Cancino Jun 07, 2017 22:58
[2017-06-08] VITALS: BP 116/60
[2017-06-08 04:00] VITALS: BP 129/77
[2017-06-08 08:05] VITALS: BP 111/60
[2017-06-08] MEDS: Thiamine 100mg tab ORAL SCH (08:45)
--- NOTE | 2017-06-08 11:19 | General Progress Note ---
Assessment/Plan Status: stable Assessment/Plan Primary Impression: Hyponatremia resolved- Hypokalemia resolved Alcohol abuse high LFTs improving Plan: Hydrate po Supplements- Per orders DC planning?? Subjective ROS Limited/Unobtainable: No Allergies: Coded Allergies: No Known Allergies (Unverified , 11/25/13) Objective Last 24 Hour Vital Signs Date Time Temp Pulse Resp B/P (MAP) Pulse Ox O2 Delivery O2 Flow Rate FiO2 06/08/17 08:05 97.2 52 18 111/60 97 Room Air 06/08/17 04:00 97.5 59 18 129/77 98 Room Air 06/08/17 00:00 98.0 72 18 116/60 98 Room Air 06/07/17 20:00 97.5 67 18 109/72 98 Room Air 06/07/17 16:00 97.0 58 18 104/62 98 Room Air 06/07/17 11:58 97.9 58 18 101/52 98 Room Air Intake and Output 06/08/17 06/09/17 19:00 07:00 Intake Total 400 ml Balance 400 ml Intake Oral 400 ml Height (Feet): 5 Height (Inches): 9.00 Weight (Pounds): 160 General Appearance: no apparent distress Objective no change SUSHIL BRAUN Jun 08, 2017 11:18
[2017-06-08 11:54] VITALS: BP 99/67
[2017-06-08 13:54] LABS: MEAN CORPUSCULAR HEMOGLOBIN 34.4 PG (27.0-31.0); MEAN CORPUSCULAR HGB CONC 31.1 G/DL (32.0-36.0); MEAN CORPUSCULAR VOLUME 111 FL (80-99); MEAN PLATELET VOLUME 9.2 FL (6.5-10.1); PLATELET COUNT 209 K/UL (150-450); RED BLOOD COUNT 3.73 M/UL (4.20-5.40); RED CELL DISTRIBUTION WIDTH 12.8 % (11.6-14.8); WHITE BLOOD COUNT 6.4 K/UL (4.8-10.8)
[2017-06-08 14:12] LABS: BAND NEUTROPHILS % (MANUAL) 0 % (0-8); BASOPHILS % (MANUAL) 0 % (0-2); EOSINOPHILS % (MANUAL) 1 % (0-3); HYPOCHROMASIA 1+; LYMPHOCYTES % (MANUAL) 21 % (20-45); MACROCYTES 1+; NEUTROPHILS % (MANUAL) 69 % (45-75); PLATELET ESTIMATE ADEQUATE; PLATELET MORPHOLOGY NORMAL; TOTAL CELLS COUNTED 100
[2017-06-08 14:18] LABS: ALANINE AMINOTRANSFERASE 52 U/L (3-33); ALBUMIN/GLOBULIN RATIO 1.5 (1.0-2.7); ANION GAP 9 (5-15); ASPARTATE AMINO TRANSFERASE 69 U/L (5-40); CARBON DIOXIDE 28 mEQ/L (20-30); CHLORIDE 105 mEQ/L (98-107); CREATININE 0.7 mg/dL (0.5-0.9); GLOMERULAR FILTRATION RATE > 60 mL/min (>60); HEMOLYSIS 9; POTASSIUM 4.1 mEQ/L (3.4-4.9); SODIUM 142 mEQ/L (135-145); TOTAL PROTEIN 5.5 g/dL (6.6-8.7)
[2017-06-08 15:18] VITALS: BP 104/74
--- NOTE | 2017-06-08 17:14 | General Progress Note ---
Assessment/Plan Assessment/Plan Assessment - anterior abd wall hernia - N/V - resolved - abnormal LFT - EtOH hepatitis Recommendations - po diet as tolerated - check hepatitis serologies --> negative - check CT scan of abd and pelvis --> fatty liver - check stool OB --> negative Subjective Allergies: Coded Allergies: No Known Allergies (Unverified , 11/25/13) Subjective uneventful night no vomiting no pain no complaints Objective Last 24 Hour Vital Signs Date Time Temp Pulse Resp B/P (MAP) Pulse Ox O2 Delivery O2 Flow Rate FiO2 06/08/17 15:18 97.5 63 18 104/74 98 Room Air 06/08/17 11:54 97.0 58 18 99/67 96 Room Air 06/08/17 08:05 97.2 52 18 111/60 97 Room Air 06/08/17 04:00 97.5 59 18 129/77 98 Room Air 06/08/17 00:00 98.0 72 18 116/60 98 Room Air 06/07/17 20:00 97.5 67 18 109/72 98 Room Air Intake and Output 06/08/17 06/09/17 19:00 07:00 Intake Total 400 ml Balance 400 ml Intake Oral 400 ml Laboratory Tests 06/08/17 13:48: White Blood Count 6.4, Red Blood Count 3.73L, Hemoglobin 12.8, Hematocrit 41.3, Mean Corpuscular Volume 111H, Mean Corpuscular Hemoglobin 34.4H, Mean Corpuscular Hemoglobin Concent 31.1L, Red Cell Distribution Width 12.8, Platelet Count 209, Mean Platelet Volume 9.2, Neutrophils (%) (Auto) , Lymphocytes (%) (Auto) , Monocytes (%) (Auto) , Eosinophils (%) (Auto) , Basophils (%) (Auto) , Differential Total Cells Counted 100, Neutrophils % ( Manual) 69, Lymphocytes % (Manual) 21, Monocytes % (Manual) 9, Eosinophils % ( Manual) 1, Basophils % (Manual) 0, Band Neutrophils 0, Platelet Estimate Adequate, Platelet Morphology Normal, Hypochromasia 1+, Macrocytosis 1+, Sodium Level 142, Potassium Level 4.1, Chloride Level 105, Carbon Dioxide Level 28, Anion Gap 9, Blood Urea Nitrogen 12, Creatinine 0.7, Estimat Glomerular Filtration Rate > 60, Glucose Level 117H, Calcium Level 9.0, Total Bilirubin 0.3 , Aspartate Amino Transf (AST/SGOT) 69H, Alanine Aminotransferase (ALT/SGPT) 52H , Alkaline Phosphatase 113H, Total Protein 5.5L, Albumin 3.3L, Globulin 2.2, Albumin/Globulin Ratio 1.5 Height (Feet): 5 Height (Inches): 9.00 Weight (Pounds): 160 Objective WDWN L woman NCAT supple CTA RRR Soft ND NT, (+) wound hernia w/o change no edema non focal DAVE AVILA Jun 08, 2017 17:14
[2017-06-08 20:00] VITALS: BP 111/63
--- NOTE | 2017-06-08 20:36 | General Progress Note ---
Assessment/Plan Problem List: (1) Hypokalemia ICD Codes: E87.6 - Hypokalemia SNOMED: 82560088 (2) Alcohol abuse ICD Codes: F10.10 - Alcohol abuse, uncomplicated SNOMED: 77019059 (3) Hyponatremia ICD Codes: E87.1 - Hypo-osmolality and hyponatremia SNOMED: 04365712 (4) Alcohol abuse (5) Injury of head (6) Abdominal wall hernia ICD Codes: K43.9 - Ventral hernia without obstruction or gangrene SNOMED: 195709034 Status: progressing Assessment/Plan afebrile cirrhosis etoh reviewed chart and labs vitals stable lyte abnormility lyte abnormality improving Subjective ROS Limited/Unobtainable: Yes Allergies: Coded Allergies: No Known Allergies (Unverified , 11/25/13) Objective Last 24 Hour Vital Signs Date Time Temp Pulse Resp B/P (MAP) Pulse Ox O2 Delivery O2 Flow Rate FiO2 06/08/17 15:18 97.5 63 18 104/74 98 Room Air 06/08/17 11:54 97.0 58 18 99/67 96 Room Air 06/08/17 08:05 97.2 52 18 111/60 97 Room Air 06/08/17 04:00 97.5 59 18 129/77 98 Room Air 06/08/17 00:00 98.0 72 18 116/60 98 Room Air Intake and Output 06/08/17 06/09/17 19:00 07:00 Intake Total 760 ml Balance 760 ml Intake Oral 760 ml # Voids 2 # Bowel Movements 1 Laboratory Tests 06/08/17 13:48: White Blood Count 6.4, Red Blood Count 3.73L, Hemoglobin 12.8, Hematocrit 41.3, Mean Corpuscular Volume 111H, Mean Corpuscular Hemoglobin 34.4H, Mean Corpuscular Hemoglobin Concent 31.1L, Red Cell Distribution Width 12.8, Platelet Count 209, Mean Platelet Volume 9.2, Neutrophils (%) (Auto) , Lymphocytes (%) (Auto) , Monocytes (%) (Auto) , Eosinophils (%) (Auto) , Basophils (%) (Auto) , Differential Total Cells Counted 100, Neutrophils % ( Manual) 69, Lymphocytes % (Manual) 21, Monocytes % (Manual) 9, Eosinophils % ( Manual) 1, Basophils % (Manual) 0, Band Neutrophils 0, Platelet Estimate Adequate, Platelet Morphology Normal, Hypochromasia 1+, Macrocytosis 1+, Sodium Level 142, Potassium Level 4.1, Chloride Level 105, Carbon Dioxide Level 28, Anion Gap 9, Blood Urea Nitrogen 12, Creatinine 0.7, Estimat Glomerular Filtration Rate > 60, Glucose Level 117H, Calcium Level 9.0, Total Bilirubin 0.3 , Aspartate Amino Transf (AST/SGOT) 69H, Alanine Aminotransferase (ALT/SGPT) 52H , Alkaline Phosphatase 113H, Total Protein 5.5L, Albumin 3.3L, Globulin 2.2, Albumin/Globulin Ratio 1.5 Height (Feet): 5 Height (Inches): 9.00 Weight (Pounds): 160 Neck: normal alignment Cardiovascular: normal rate Respiratory/Chest: lungs clear Jules Guardado MD Jun 08, 2017 20:36
--- NOTE | 2017-06-08 22:06 | Infectious Diseases Prog Note ---
Assessment/Plan Problems: (1) Hepatitis, acute Assessment & Plan: hepatitis panel is negative , most likely due to alcohol abuse, avoid hepatotoxic meds , GI is following, rule out autoimmune etiology too , monospot is negative , CMV and herpes are pending .monitor LFT (2) Abdominal wall hernia Assessment & Plan: await CT of the abdomen for further evaluation and management . consult general surgery (3) Alcohol abuse Assessment & Plan: recommend counseling and rehabilitations. watch for DT Subjective Constitutional: Reports: no symptoms HEENT: Reports: no symptoms Respiratory: Reports: no symptoms Breasts: Reports: no symptoms Cardiovascular: Reports: no symptoms Gastrointestinal/Abdominal: Reports: no symptoms Genitourinary: Reports: no symptoms Neurologic: Reports: no symptoms Psychiatric: Reports: no symptoms Skin: Reports: no symptoms Endocrine: Reports: no symptoms Hematologic: Reports: no symptoms Musculoskeletal: Reports: no symptoms Allergies: Coded Allergies: No Known Allergies (Unverified , 11/25/13) Objective Vital Signs Last 24 Hour Vital Signs Date Time Temp Pulse Resp B/P (MAP) Pulse Ox O2 Delivery O2 Flow Rate FiO2 06/08/17 20:00 98.1 59 18 111/63 96 Room Air 06/08/17 15:18 97.5 63 18 104/74 98 Room Air 06/08/17 11:54 97.0 58 18 99/67 96 Room Air 06/08/17 08:05 97.2 52 18 111/60 97 Room Air 06/08/17 04:00 97.5 59 18 129/77 98 Room Air 06/08/17 00:00 98.0 72 18 116/60 98 Room Air Height (Feet): 5 Height (Inches): 9.00 Weight (Pounds): 160 General Appearance: WD/WN, no acute distress HEENT: normocephalic, atraumatic, anicteric, mucous membranes moist, PERRL Respiratory/Chest: chest wall non-tender, lungs clear, normal breath sounds, no respiratory distress, no accessory muscle use, decreased breath sounds Cardiovascular: normal peripheral pulses, normal rate, regular rhythm, no gallop/murmur, no JVD Abdomen: normal bowel sounds, soft, non tender, no organomegaly, non distended , no mass, no scars Extremities: no cyanosis, no clubbing Skin: no rash, no lesions, no ulcers Neurologic/Psychiatric: alert, oriented x 3, responsive Laboratory Tests Test 06/08/17 13:48 White Blood Count 6.4 K/UL (4.8-10.8) Red Blood Count 3.73 M/UL (4.20-5.40) L Hemoglobin 12.8 G/DL (12.0-16.0) Hematocrit 41.3 % (37.0-47.0) Mean Corpuscular Volume 111 FL (80-99) H Mean Corpuscular Hemoglobin 34.4 PG (27.0-31.0) H Mean Corpuscular Hemoglobin Concent 31.1 G/DL (32.0-36.0) L Red Cell Distribution Width 12.8 % (11.6-14.8) Platelet Count 209 K/UL (150-450) Mean Platelet Volume 9.2 FL (6.5-10.1) Neutrophils (%) (Auto) % (45.0-75.0) Lymphocytes (%) (Auto) % (20.0-45.0) Monocytes (%) (Auto) % (1.0-10.0) Eosinophils (%) (Auto) % (0.0-3.0) Basophils (%) (Auto) % (0.0-2.0) Differential Total Cells Counted 100 Neutrophils % (Manual) 69 % (45-75) Lymphocytes % (Manual) 21 % (20-45) Monocytes % (Manual) 9 % (1-10) Eosinophils % (Manual) 1 % (0-3) Basophils % (Manual) 0 % (0-2) Band Neutrophils 0 % (0-8) Platelet Estimate Adequate Platelet Morphology Normal Hypochromasia 1+ Macrocytosis 1+ Sodium Level 142 mEQ/L (135-145) Potassium Level 4.1 mEQ/L (3.4-4.9) Chloride Level 105 mEQ/L (98-107) Carbon Dioxide Level 28 mEQ/L (20-30) Anion Gap 9 (5-15) Blood Urea Nitrogen 12 mg/dL (7-23) Creatinine 0.7 mg/dL (0.5-0.9) Estimat Glomerular Filtration Rate > 60 mL/min (>60) Glucose Level 117 mg/dL (74-106) H Calcium Level 9.0 mg/dL (8.6-10.2) Total Bilirubin 0.3 mg/dL (0.0-1.2) Aspartate Amino Transf (AST/SGOT) 69 U/L (5-40) H Alanine Aminotransferase (ALT/SGPT) 52 U/L (3-33) H Alkaline Phosphatase 113 U/L (35-104) H Total Protein 5.5 g/dL (6.6-8.7) L Albumin 3.3 g/dL (3.5-5.2) L Globulin 2.2 g/dL Albumin/Globulin Ratio 1.5 (1.0-2.7) Current Medications Medications (Trade) Dose Ordered Sig/Neeraj Route PRN Reason Start Time Stop Time Status Last Admin Dose Admin Diazepam (Valium) 10 mg EVERY 4 HOURS PRN ORAL agitaiton 06/04/17 12:30 06/11/17 12:29 06/08/17 15:40 Fluoxetine HCl (PROzac) 20 mg DAILY ORAL 06/05/17 09:00 07/05/17 08:59 06/08/17 08:44 Pantoprazole (Protonix) 40 mg EVERY 12 HOURS ORAL 06/04/17 21:00 07/04/17 20:59 06/08/17 21:49 Thiamine HCl (Vitamin B1) 100 mg DAILY ORAL 06/04/17 13:00 07/04/17 12:59 06/08/17 08:45 Layne Yang M.D. Jun 08, 2017 22:06
--- NOTE | 2017-06-08 23:28 | General Progress Note ---
Assessment/Plan Status: doing well, stable, progressing Subjective Constitutional: Reports: malaise, weakness Neurologic/Psychiatric: Reports: anxiety, depressed, emotional problems Allergies: Coded Allergies: No Known Allergies (Unverified , 11/25/13) Objective Last 24 Hour Vital Signs Date Time Temp Pulse Resp B/P (MAP) Pulse Ox O2 Delivery O2 Flow Rate FiO2 06/08/17 20:00 98.1 59 18 111/63 96 Room Air 06/08/17 15:18 97.5 63 18 104/74 98 Room Air 06/08/17 11:54 97.0 58 18 99/67 96 Room Air 06/08/17 08:05 97.2 52 18 111/60 97 Room Air 06/08/17 04:00 97.5 59 18 129/77 98 Room Air 06/08/17 00:00 98.0 72 18 116/60 98 Room Air Intake and Output 06/08/17 06/09/17 19:00 07:00 Intake Total 760 ml 240 ml Balance 760 ml 240 ml Intake Oral 760 ml 240 ml # Voids 2 1 # Bowel Movements 1 Laboratory Tests 06/08/17 13:48: White Blood Count 6.4, Red Blood Count 3.73L, Hemoglobin 12.8, Hematocrit 41.3, Mean Corpuscular Volume 111H, Mean Corpuscular Hemoglobin 34.4H, Mean Corpuscular Hemoglobin Concent 31.1L, Red Cell Distribution Width 12.8, Platelet Count 209, Mean Platelet Volume 9.2, Neutrophils (%) (Auto) , Lymphocytes (%) (Auto) , Monocytes (%) (Auto) , Eosinophils (%) (Auto) , Basophils (%) (Auto) , Differential Total Cells Counted 100, Neutrophils % ( Manual) 69, Lymphocytes % (Manual) 21, Monocytes % (Manual) 9, Eosinophils % ( Manual) 1, Basophils % (Manual) 0, Band Neutrophils 0, Platelet Estimate Adequate, Platelet Morphology Normal, Hypochromasia 1+, Macrocytosis 1+, Sodium Level 142, Potassium Level 4.1, Chloride Level 105, Carbon Dioxide Level 28, Anion Gap 9, Blood Urea Nitrogen 12, Creatinine 0.7, Estimat Glomerular Filtration Rate > 60, Glucose Level 117H, Calcium Level 9.0, Total Bilirubin 0.3 , Aspartate Amino Transf (AST/SGOT) 69H, Alanine Aminotransferase (ALT/SGPT) 52H , Alkaline Phosphatase 113H, Total Protein 5.5L, Albumin 3.3L, Globulin 2.2, Albumin/Globulin Ratio 1.5 Height (Feet): 5 Height (Inches): 9.00 Weight (Pounds): 160 General Appearance: no apparent distress, alert Neurologic: alert, oriented x 3, responsive, depressed affect Donald Davila M.D. Jun 08, 2017 23:28
[2017-06-09] VITALS: BP 119/66
[2017-06-09 04:00] VITALS: BP 114/65
[2017-06-09 06:34] LABS: ALANINE AMINOTRANSFERASE 47 U/L (3-33); ANION GAP 9 (5-15); ASPARTATE AMINO TRANSFERASE 74 U/L (5-40); CALCIUM 8.8 mg/dL (8.6-10.2); CARBON DIOXIDE 31 mEQ/L (20-30); CHLORIDE 104 mEQ/L (98-107); CREATININE 0.6 mg/dL (0.5-0.9); GLOMERULAR FILTRATION RATE > 60 mL/min (>60); HEMOLYSIS 4; POTASSIUM 4.1 mEQ/L (3.4-4.9); SODIUM 144 mEQ/L (135-145); TOTAL PROTEIN 5.8 g/dL (6.6-8.7)
[2017-06-09 08:00] VITALS: BP 112/58
--- NOTE | 2017-06-09 08:15 | Progress Note ---
DATE: 06/07/2017 SUBJECTIVE: The patient is stable at baseline. No behavior issues . She is complaining of anxiety. MENTAL STATUS EXAMINATION: The patient is alert and oriented to time, self, place, and situation. Mood is anxious. Affect is constricted. Congruent with mood. Thought process, there is a paucity of thought content. No suicidal or homicidal ideation. Cognition is intact. ASSESSMENT: 1. Alcohol dependence. 2. Anxiety disorder. PLAN: We will continue current medications. Provide the patient with supportive therapy and reality orientation. Donald Davila M.D. DR: Ion JOB#: [id number] CC:
[2017-06-09] MEDS: Thiamine 100mg tab ORAL SCH (08:47)
[2017-06-09] MEDS ORDERED: FLUOXETINE HCL20 MG ORAL (09:01)
--- NOTE | 2017-06-09 10:24 | General Progress Note ---
Assessment/Plan Assessment/Plan 1. Macrocytosis, I would say is directly related to the patient's history of alcohol abuse. -->The patient noted to be with transaminitis with a 2:1 ratio of AST and ALT, which is positive for alcohol abuse. --> should improve after alcohol use is decreased 2. Pancytopenia, likely secondary to underlying alcohol abuse --> resolved 3. Hyponatremia --> resolved 4. Transaminitis. 5. Abdominal pain with nausea and vomiting. --> resolved Subjective Date patient seen: Jun 08, 2017 Constitutional: Reports: no symptoms HEENT: Reports: no symptoms Cardiovascular: Reports: no symptoms Respiratory: Reports: no symptoms Gastrointestinal/Abdominal: Reports: no symptoms Genitourinary: Reports: no symptoms Neurologic/Psychiatric: Reports: no symptoms Endocrine: Reports: no symptoms Hematologic/Lymphatic: Reports: no symptoms Allergies: Coded Allergies: No Known Allergies (Unverified , 11/25/13) Subjective sitting in chair, no events overnight Objective Last 24 Hour Vital Signs Date Time Temp Pulse Resp B/P (MAP) Pulse Ox O2 Delivery O2 Flow Rate FiO2 06/09/17 08:00 98.1 61 18 112/58 99 Room Air 06/09/17 04:00 97.1 66 18 114/65 97 Room Air 06/09/17 00:00 97.9 68 18 119/66 98 Room Air 06/08/17 20:00 98.1 59 18 111/63 96 Room Air 06/08/17 15:18 97.5 63 18 104/74 98 Room Air 06/08/17 11:54 97.0 58 18 99/67 96 Room Air Intake and Output 06/09/17 06/10/17 19:00 07:00 Intake Total 360 ml Balance 360 ml Intake Oral 360 ml # Voids 1 Laboratory Tests 06/08/17 13:48: White Blood Count 6.4, Red Blood Count 3.73L, Hemoglobin 12.8, Hematocrit 41.3, Mean Corpuscular Volume 111H, Mean Corpuscular Hemoglobin 34.4H, Mean Corpuscular Hemoglobin Concent 31.1L, Red Cell Distribution Width 12.8, Platelet Count 209, Mean Platelet Volume 9.2, Neutrophils (%) (Auto) , Lymphocytes (%) (Auto) , Monocytes (%) (Auto) , Eosinophils (%) (Auto) , Basophils (%) (Auto) , Differential Total Cells Counted 100, Neutrophils % ( Manual) 69, Lymphocytes % (Manual) 21, Monocytes % (Manual) 9, Eosinophils % ( Manual) 1, Basophils % (Manual) 0, Band Neutrophils 0, Platelet Estimate Adequate, Platelet Morphology Normal, Hypochromasia 1+, Macrocytosis 1+, Sodium Level 142, Potassium Level 4.1, Chloride Level 105, Carbon Dioxide Level 28, Anion Gap 9, Blood Urea Nitrogen 12, Creatinine 0.7, Estimat Glomerular Filtration Rate > 60, Glucose Level 117H, Calcium Level 9.0, Total Bilirubin 0.3 , Aspartate Amino Transf (AST/SGOT) 69H, Alanine Aminotransferase (ALT/SGPT) 52H , Alkaline Phosphatase 113H, Total Protein 5.5L, Albumin 3.3L, Globulin 2.2, Albumin/Globulin Ratio 1.5 06/09/17 05:55: Sodium Level 144, Potassium Level 4.1, Chloride Level 104, Carbon Dioxide Level 31H, Anion Gap 9, Blood Urea Nitrogen 10, Creatinine 0.6, Estimat Glomerular Filtration Rate > 60, Glucose Level 98, Calcium Level 8.8, Total Bilirubin 0.3, Aspartate Amino Transf (AST/SGOT) 74H, Alanine Aminotransferase (ALT/SGPT) 47H, Alkaline Phosphatase 117H, Total Protein 5.8L, Albumin 3.0L, Globulin 2.8, Albumin/Globulin Ratio 1.0 Height (Feet): 5 Height (Inches): 9.00 Weight (Pounds): 160 General Appearance: no apparent distress EENT: normal ENT inspection Neck: normal alignment Cardiovascular: normal peripheral pulses Extremities: non-tender, no calf tenderness Neurologic: no motor/sensory deficits Skin: warm/dry Lauri Cancino Jun 09, 2017 10:24
--- NOTE | 2017-06-09 13:44 | General Progress Note ---
Assessment/Plan Status: doing well, stable, progressing Subjective Neurologic/Psychiatric: Reports: anxiety, depressed, emotional problems Allergies: Coded Allergies: No Known Allergies (Unverified , 11/25/13) Objective Last 24 Hour Vital Signs Date Time Temp Pulse Resp B/P (MAP) Pulse Ox O2 Delivery O2 Flow Rate FiO2 06/09/17 08:00 98.1 61 18 112/58 99 Room Air 06/09/17 04:00 97.1 66 18 114/65 97 Room Air 06/09/17 00:00 97.9 68 18 119/66 98 Room Air 06/08/17 20:00 98.1 59 18 111/63 96 Room Air 06/08/17 15:18 97.5 63 18 104/74 98 Room Air Intake and Output 06/09/17 06/10/17 19:00 07:00 Intake Total 360 ml Balance 360 ml Intake Oral 360 ml # Voids 1 Laboratory Tests 06/08/17 13:48: White Blood Count 6.4, Red Blood Count 3.73L, Hemoglobin 12.8, Hematocrit 41.3, Mean Corpuscular Volume 111H, Mean Corpuscular Hemoglobin 34.4H, Mean Corpuscular Hemoglobin Concent 31.1L, Red Cell Distribution Width 12.8, Platelet Count 209, Mean Platelet Volume 9.2, Neutrophils (%) (Auto) , Lymphocytes (%) (Auto) , Monocytes (%) (Auto) , Eosinophils (%) (Auto) , Basophils (%) (Auto) , Differential Total Cells Counted 100, Neutrophils % ( Manual) 69, Lymphocytes % (Manual) 21, Monocytes % (Manual) 9, Eosinophils % ( Manual) 1, Basophils % (Manual) 0, Band Neutrophils 0, Platelet Estimate Adequate, Platelet Morphology Normal, Hypochromasia 1+, Macrocytosis 1+, Sodium Level 142, Potassium Level 4.1, Chloride Level 105, Carbon Dioxide Level 28, Anion Gap 9, Blood Urea Nitrogen 12, Creatinine 0.7, Estimat Glomerular Filtration Rate > 60, Glucose Level 117H, Calcium Level 9.0, Total Bilirubin 0.3 , Aspartate Amino Transf (AST/SGOT) 69H, Alanine Aminotransferase (ALT/SGPT) 52H , Alkaline Phosphatase 113H, Total Protein 5.5L, Albumin 3.3L, Globulin 2.2, Albumin/Globulin Ratio 1.5 06/09/17 05:55: Sodium Level 144, Potassium Level 4.1, Chloride Level 104, Carbon Dioxide Level 31H, Anion Gap 9, Blood Urea Nitrogen 10, Creatinine 0.6, Estimat Glomerular Filtration Rate > 60, Glucose Level 98, Calcium Level 8.8, Total Bilirubin 0.3, Aspartate Amino Transf (AST/SGOT) 74H, Alanine Aminotransferase (ALT/SGPT) 47H, Alkaline Phosphatase 117H, Total Protein 5.8L, Albumin 3.0L, Globulin 2.8, Albumin/Globulin Ratio 1.0 Height (Feet): 5 Height (Inches): 9.00 Weight (Pounds): 160 General Appearance: no apparent distress, alert, overweight Neurologic: alert, oriented x 3, responsive, depressed affect Donald Davial M.D. Jun 09, 2017 13:44
[2017-06-09 22:08] LABS: CMV DNA PCR QUAL BLOOD/CSF Negative (Negative)
[2017-06-10] MEDS ORDERED: VITAMIN B-1100 MG ORAL (09:30)
--- NOTE | 2017-06-10 09:31 | Discharge Summary ---
Discharge Summary Hospital Course Date of Admission Jun 04, 2017 at 02:42 Date of Discharge Jun 09, 2017 at 09:46 Admitting Diagnosis HYPONATREMIA,HYPOKALEMIA HPI Anayeli Calabrese is a 57 year old female who was admitted on Jun 04, 2017 at 02:42 for Hyponatremia,Hypokalemia Hospital Course dc summary #[id number] Discharge Medications New Medications: Thiamine Hcl* (Vitamin B-1*) 100 Mg Tablet 100 MG ORAL DAILY, #30 TAB 0 Refills Continued Medications: Fluoxetine Hcl* (Fluoxetine Hcl*) 20 Mg Capsule 20 MG ORAL DAILY, CAP Discontinued Medications: No Known Medications* (NKM - No Known Medications*) . 0 ., 0 Refills Discharge Condition Upon Discharge: stable Discharge Disposition Patient was discharged to Home with Home Health(06) Discharge Diagnoses: Discharge Instructions Discharge Instructions Special Instructions I have been assigned to complete a D/C Summary on this account. I was not involved in the patient management Shabana Smith NP (Vanchtein) Jun 10, 2017 09:31
--- NOTE | 2017-06-10 20:46 | Discharge Summary 2 SIG ---
DATE OF ADMISSION: 06/04/2017 DATE OF DISCHARGE: 06/09/2017 Reason for Admission: 57-year-old female with history of alcohol abuse and depression, presented to the emergency department for evaluation. Family stated that the patient drinks on a daily basis. No report of vomiting or diarrhea. No report of fall or trauma. Urine tox screen was negative. Alcohol level - 184. Sodium -131, potassium -2.8, AST- 169, and ALT -88. No leukocytosis. No anemia. The patient was admitted for further management. ADMITTING DIAGNOSES: 1. Electrolyte imbalance; hyponatremia and hypokalemia. 2. Alcohol abuse. 3. Transaminitis. Hospital Course: The patient was admitted. The patient was started on IV fluids. Pain management was provided. Antiemetic provided as needed. GI consult, neurology consult, and nephrology consult were all requested. Electrolytes were replaced and were stable throughout, likely secondary to dehydration. Sodium up to 144 and potassium up to 4.1 upon discharge. Ammonia level was within normal limits. Neurologist evaluated the patient. CT of the head revealed no acute intracranial pathology. Neurologist recommended to start thiamine and p.r.n. Valium for any signs of delirium tremens, Neurologist also recommended psychiatric evaluation to address underlying dementia. Psychiatrist seen and evaluated the patient. In addition to depression, diagnosed her with anxiety disorder. She started the patient on Prozac. Hepatitis panel was negative. Monospot was negative. Hepatitis was likely related to Cytomegalovirus serology was negative. HSV serology was still pending. LFTs were trending down: AST down to 74, ALT down to 47. GI concluded that transaminitis was likely due to the alcohol abuse. Abdominal pain was likely secondary to alcoholic hepatitis versus abdominal wall hernia. CT of the abdomen and pelvis was closely reviewed by GI specialist. It revealed fatty liver. Venous duplex of bilateral lower extremities was negative. Stool OB was negative. Per GI, no gastrointestinal procedures were necessary at this time. The patient was able to tolerate diet. The patient was counseled on abstinence from alcohol. The patient was stable for discharge home with the home health services. DISCHARGE DIAGNOSES: 1. Acute alcoholic hepatitis. 2. Alcohol abuse and dependency. 3. Abdominal wall hernia. 4. Transaminitis secondary to alcoholic pancreatitis. 5. Major depression. 6. Anxiety disorder. 7. Electrolyte imbalance; hyponatremia and hypokalemia, resolved. 8. Fatty liver. DISCHARGE MEDICATIONS: See medication reconciliation list. Discharge Instructions: The patient was discharged home with home health services; follow up with primary medical doctor. The patient was counseled on abstinence from alcohol. The patient to follow up with GI as outpatient. Jules Guardado M.D. I have been assigned to dictate discharge summary on this account and I was not involved in the patient's management. Shabana Romeroerendira NEricaPErica DR: ANASTASIA JOB#: [id number] CC: [id number]
--- NOTE | 2017-06-11 14:33 | Diagnostic Imaging Report ---
Indication: VOMITING and nausea Technique: Spiral acquisitions obtained through the abdomen and pelvis. No oral contrast utilized, per emergency room physician request No IV contrast utilized, per referring physician request.. Multiplanar reconstructions were generated. Total dose length product 793 mGycm. CTDIvol(s) 17 mGy. Dose reduction achieved using automated exposure control Comparison: None Findings: There is a small fat-containing indirect right inguinal hernia. There is broad-based diastasis of the rectus abdominis tendon, possibly with some associated abdominal wall mesh. The edge of the transverse colon protrudes slightly into the diastatic area but no jovi bowel herniation is present. A small amount of fat is herniated inferiorly to the diastatic area. No evidence of diverticulosis or diverticulitis. The appendix is normal. No small bowel distention. Contrast is seen throughout the entirety of the small bowel and reaches as far distally as the rectum. No free or loculated peritoneal air or fluid is evident. There is questionably a tiny sliding-type hiatal hernia. The distal esophagus, stomach, duodenum are otherwise unremarkable. Lack of IV contrast limits assessment of the solid organs. The liver is diffusely hypoattenuating. There is an area of the lower in the left hepatic lobe, predominantly within segment 3, but also extending slightly into segment 2 in segment 4A. This area measures approximately 3.8 cm transverse by 2.6 cm AP. The gallbladder is nondistended. No definite gallstones. No biliary ductal dilatation. The pancreas, spleen, adrenals, are unremarkable. The right kidney demonstrates abnormal axis rotation, with the lower pole tilted anteriorly. The left kidney demonstrates multiple lower pole calcifications, measuring up to 4 mm in diameter. It is uncertain whether these are calyceal or parenchymal, suspect the former. No hydronephrosis. Is no hydroureter. The uterus and adnexal structures are unremarkable. No pelvic mass or adenopathy. No retroperitoneal or mesenteric mass or adenopathy. The included lung bases demonstrate some atelectasis or scarring in the posterior lateral right middle lobe. The bones demonstrate minimal degenerative spondylosis changes. Impression: Diffuse hepatic low attenuation, consistent with fatty change. Somewhat ill-defined area of even lower attenuation, predominantly within segment 3 of the liver, as described. Most likely an area of even more intense focal fatty infiltration, particularly given the typical location for such and presence of negative Hounsfield attenuation measurements. Left lower pole nonobstructive renal calyceal calculi versus parenchymal calcifications Broad-based diastasis of the rectus abdominis tendon, evidence of prior hernia repair. No jovi significant herniation evident currently Small right inguinal hernia which contains only fat No acute process Incidental findings as noted, including minimal right middle lobe atelectasis or scarring, questionable tiny sliding-type hiatal hernia The CT scanner at [facility] is accredited by the [employer] and the scans are performed using protocols designed to limit radiation exposure to as low as reasonably achievable to attain images of sufficient resolution adequate for diagnostic evaluation.
== END 2017-06-09 09:46 | disposition home health service (06) | DRG 432 ==
LOC: EDBD 22:02 → EMR 22:15 → 3E 06-04 02:42 → EDBEDREQ 06-04 03:14 → 4W 06-05 08:24
DX: K70.10 Alcoholic hepatitis without ascites (principal); K85.20 Alcohol induced acute pancreatitis without necrosis or infection; D61.818 Other pancytopenia; E87.1 Hypo-osmolality and hyponatremia; E87.6 Hypokalemia; F17.200 Nicotine dependence, unspecified, uncomplicated; F10.20 Alcohol dependence, uncomplicated; K43.9 Ventral hernia without obstruction or gangrene; F32.9 Major depressive disorder, single episode, unspecified; F41.9 Anxiety disorder, unspecified; K76.0 Fatty (change of) liver, not elsewhere classified
CPT/HCPCS: 36415; 70450; 74176; 80053; 80061; 80300; 80329; 81001; 82140; 82248; 82270; 82550; 82607; 82746; 82977; 83036; 83735; 83880; 84100; 84443; 84550; 85007; 85025; 85044; 85610; 86140; 86308; 86695; 86705; 86709; 86803; 87340; 87496; 93970; 99285; J8499

== ENCOUNTER 2017-07-01 19:58 | Emergency (ER) | payer OTHER, MEDICAID ==
[~2017-07-01] VITALS: Ht 160 cm; Wt 72.6 kg
[~2017-07-01 19:58] MED LIST: FLUOXETINE HCL20 MG ORAL; NKM; VITAMIN B-1100 MG ORAL
[2017-07-01 20:15] VITALS: BP 123/77
--- NOTE | 2017-07-01 20:21 | Emergency Room Report ---
History of Present Illness General Chief Complaint: Seizure Source: Medical Record (Te Martinez) Present Illness HPI Patient is a 57-year-old female brought in by family member after altered level consciousness. Patient reportedly had some kind of seizure. Patient had been reportedly drinking heavily earlier in the day. This is markedly limited by patient's mental status (Te Martinez) Allergies: Coded Allergies: No Known Allergies (Unverified , 11/25/13) Patient History Past Medical History: see triage record Reviewed Nursing Documentation: PMH: Agreed, PSxH: Agreed (Te Martinez) Nursing Documentation-PMH Hx Hypertension: Yes Hx Cancer: No Hx Gastrointestinal Problems: No Hx Neurological Problems: No - ETOH Hx Seizures: Yes (Te Martinez) Review of Systems All Other Systems: limited - by mental status (Te Martinez) Physical Exam Vital Signs Date Time Temp Pulse Resp B/P (MAP) Pulse Ox O2 Delivery O2 Flow Rate FiO2 07/01/17 20:05 97.3 62 18 109/64 92 Room Air Sp02 EP Interpretation: reviewed, normal General Appearance: normal inspection, well appearing, no apparent distress, alert Head: atraumatic ENT: normal ENT inspection, hearing grossly normal, normal voice Neck: normal inspection, full range of motion, supple, no bony tend Respiratory: normal inspection, lungs clear, normal breath sounds, no respiratory distress, no retraction, no wheezing Cardiovascular #1: regular rate, rhythm, no edema Gastrointestinal: normal inspection, normal bowel sounds, non tender, soft, no guarding, no hernia Genitourinary: no CVA tenderness Musculoskeletal: normal inspection, back normal, normal range of motion Neurologic: normal inspection, alert, oriented x3, responsive, 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, speech normal Psychiatric: normal inspection, judgement/insight normal, mood/affect normal Skin: normal inspection, normal color, no rash (Te Martinez) Medical Decision Making Diagnostic Impression: Primary Impression: Alcohol abuse Additional Impression: Seizure disorder ER Course Patient presented for altered mental status.Differential diagnosis included but was not limited to ischemic stroke, subarachnoid hemorrhage, hypoglycemia, spinal cord injury, neurodegenerative disorder, urinary tract infection, hypoxemia.Because of complexity of patient's case laboratory testing and imaging studies were ordered.The patient was noted to be somewhat intoxicated with alcohol. The patient was endorsed to [facility] pending reevaluation after observation. Labs Test 07/01/17 20:26 07/01/17 21:00 White Blood Count 7.0 K/UL (4.8-10.8) Red Blood Count 4.25 M/UL (4.20-5.40) Hemoglobin 14.6 G/DL (12.0-16.0) Hematocrit 47.5 % (37.0-47.0) Mean Corpuscular Volume 112 FL (80-99) Mean Corpuscular Hemoglobin 34.3 PG (27.0-31.0) Mean Corpuscular Hemoglobin Concent 30.7 G/DL (32.0-36.0) Red Cell Distribution Width 12.8 % (11.6-14.8) Platelet Count 211 K/UL (150-450) Mean Platelet Volume 7.9 FL (6.5-10.1) Neutrophils (%) (Auto) % (45.0-75.0) Lymphocytes (%) (Auto) % (20.0-45.0) Monocytes (%) (Auto) % (1.0-10.0) Eosinophils (%) (Auto) % (0.0-3.0) Basophils (%) (Auto) % (0.0-2.0) Differential Total Cells Counted 100 Neutrophils % (Manual) 52 % (45-75) Lymphocytes % (Manual) 39 % (20-45) Monocytes % (Manual) 5 % (1-10) Eosinophils % (Manual) 2 % (0-3) Basophils % (Manual) 1 % (0-2) Band Neutrophils 1 % (0-8) Platelet Estimate Adequate Platelet Morphology Normal Anisocytosis 1+ Macrocytosis 1+ Sodium Level 146 mEQ/L (135-145) Potassium Level 3.9 mEQ/L (3.4-4.9) Chloride Level 106 mEQ/L (98-107) Carbon Dioxide Level 27 mEQ/L (20-30) Anion Gap 13 (5-15) Blood Urea Nitrogen 4 mg/dL (7-23) Creatinine 0.6 mg/dL (0.5-0.9) Estimat Glomerular Filtration Rate > 60 mL/min (>60) Glucose Level 82 mg/dL (74-106) Lactic Acid Level 2.20 mmol/L (0.66-2.22) Calcium Level 8.7 mg/dL (8.6-10.2) Total Bilirubin 0.4 mg/dL (0.0-1.2) Aspartate Amino Transf (AST/SGOT) 112 U/L (5-40) Alanine Aminotransferase (ALT/SGPT) 76 U/L (3-33) Alkaline Phosphatase 179 U/L (35-104) Ammonia 36 umol/L (11-51) Total Protein 7.1 g/dL (6.6-8.7) Albumin 4.0 g/dL (3.5-5.2) Globulin 3.1 g/dL Albumin/Globulin Ratio 1.2 (1.0-2.7) Salicylates Level < 1 mg/dL (10-30) Acetaminophen Level < 10 ug/mL (10-30) Serum Alcohol 255 mg/dL Urine Color Pale yellow Urine Appearance Clear Urine pH 6 (4.5-8.0) Urine Specific [place] 1.010 (1.005-1.035) Urine Protein Negative (NEGATIVE) Urine Glucose (UA) Negative (NEGATIVE) Urine Ketones Negative (NEGATIVE) Urine Occult Blood Negative (NEGATIVE) Urine Nitrite Negative (NEGATIVE) Urine Bilirubin Negative (NEGATIVE) Urine Urobilinogen Normal MG/DL (0.0-1.0) Urine Leukocyte Esterase Negative (NEGATIVE) Urine Opiates Screen Negative (NEGATIVE) Urine Barbiturates Screen Negative (NEGATIVE) Phencyclidine (PCP) Screen Negative (NEGATIVE) Urine Amphetamines Screen Negative (NEGATIVE) Urine Benzodiazepines Screen Negative (NEGATIVE) Urine Cocaine Screen Negative (NEGATIVE) Urine Marijuana (THC) Screen Negative (NEGATIVE) (Te Martinez) ER Course Patient presents with alcohol intoxication and seizure. She is a heavy drinker and with possible seizure. This may be withdrawal. I will put her on Librium. No evidence of trauma. Labs unremarkable. We'll discharge home to her son. (LD MONDRAGON M.D.) Last Vital Signs Date Time Temp Pulse Resp B/P (MAP) Pulse Ox O2 Delivery O2 Flow Rate FiO2 07/01/17 20:05 97.3 62 18 109/64 92 Room Air Status: improved (Te Martinez) Status: improved (LD MONDRAGON M.D.) Disposition: HOME, SELF-CARE Condition: Stable Scripts Chlordiazepoxide (Chlordiazepoxide HCl) 25 Mg Capsule 25 MG ORAL THREE TIMES A DAY, #21 CAP 0 Refills Prov: LD MONDRAGON M.D. 07/01/17 Additional Instructions: Abstain from alcohol. Followup with your Dr. in 2-3 days. Go to rehabilitation. Return if symptom worsen. Te Martinez Jul 01, 2017 20:21 LD MONDRAGON M.D. Jul 01, 2017 21:55
[2017-07-01] MEDS ORDERED: Naloxone 1mg/ml 2ml IVP ONE (20:30)
[2017-07-01 20:43] LABS: MEAN CORPUSCULAR HEMOGLOBIN 34.3 PG (27.0-31.0); MEAN CORPUSCULAR HGB CONC 30.7 G/DL (32.0-36.0); MEAN CORPUSCULAR VOLUME 112 FL (80-99); MEAN PLATELET VOLUME 7.9 FL (6.5-10.1); PLATELET COUNT 211 K/UL (150-450); RED BLOOD COUNT 4.25 M/UL (4.20-5.40); RED CELL DISTRIBUTION WIDTH 12.8 % (11.6-14.8)
[2017-07-01 20:59] LABS: ACETAMINOPHEN < 10 ug/mL (10-30); ALANINE AMINOTRANSFERASE 76 U/L (3-33); ALBUMIN/GLOBULIN RATIO 1.2 (1.0-2.7); ALCOHOL 255 mg/dL; ANION GAP 13 (5-15); ASPARTATE AMINO TRANSFERASE 112 U/L (5-40); CALCIUM 8.7 mg/dL (8.6-10.2); CARBON DIOXIDE 27 mEQ/L (20-30); CHLORIDE 106 mEQ/L (98-107); CREATININE 0.6 mg/dL (0.5-0.9); GLOMERULAR FILTRATION RATE > 60 mL/min (>60); HEMOLYSIS 6; POTASSIUM 3.9 mEQ/L (3.4-4.9); SODIUM 146 mEQ/L (135-145); TOTAL PROTEIN 7.1 g/dL (6.6-8.7)
[2017-07-01 21:00] LABS: AMMONIA 36 umol/L (11-51)
[2017-07-01 21:28] LABS: REFLEX LACTIC ACID YES OR NO YES
[2017-07-01 21:30] LABS: APPEARANCE,URINE CLEAR; KETONES,URINE NEGATIVE (NEGATIVE); LEUKOCYTE ESTERASE ,URINE NEGATIVE (NEGATIVE); NITRITE,URINE NEGATIVE (NEGATIVE); PH,URINE 6 (4.5-8.0); PROTEIN,URINE NEGATIVE (NEGATIVE); UROBILINOGEN,URINE NORMAL MG/DL (0.0-1.0)
[2017-07-01] MEDS ORDERED: LIBRIUM25 MG ORAL (21:55)
[2017-07-01 21:56] LABS: ANISOCYTOSIS 1+; BAND NEUTROPHILS % (MANUAL) 1 % (0-8); BASOPHILS % (MANUAL) 1 % (0-2); EOSINOPHILS % (MANUAL) 2 % (0-3); LYMPHOCYTES % (MANUAL) 39 % (20-45); MACROCYTES 1+; NEUTROPHILS % (MANUAL) 52 % (45-75); PLATELET ESTIMATE ADEQUATE; PLATELET MORPHOLOGY NORMAL; TOTAL CELLS COUNTED 100
[2017-07-01] MEDS ORDERED: chlordiazePOXIDE 25mg Cap ORAL ONE (22:00)
[2017-07-01 22:40] VITALS: BP 106/71
== END 2017-07-01 22:50 | disposition home or self-care (01) ==
LOC: EMR 20:20
DX: F10.10 Alcohol abuse, uncomplicated (principal); G40.909 Epilepsy, unspecified, not intractable, without status epilepticus; I10 Essential (primary) hypertension
CPT/HCPCS: 36415; 80053; 80300; 80329; 81003; 82140; 83605; 85007; 85025; 96374; 99284; J2310